=== PATIENT | male | born 1950 | race Caucasian/White ===

== ENCOUNTER 2019-11-10 17:17 | Inpatient (IN) | payer OTHER, BC ==
[2019-11-10 17:23] VITALS: BMI 23.9
--- NOTE | 2019-11-10 17:24 | PDOC ---
History of Present Illness - General Chief Complaint: CVA/TIA Stated Complaint: R/O STROKE Time Seen by Provider: 11/10/19 17:22 Past History - Past Medical History Allergies/Adverse Reactions: Allergies Allergy/AdvReac Type Severity Reaction Status Date / Time No Known Allergies Allergy Verified 11/10/19 17:19 Cardiac Disorders: Yes (heart mummer) COPD: No HTN: Yes - Psycho Social/Smoking Cessation Hx Smoking History: Current every day smoker Have you smoked in the past 12 months: Yes Number of Cigarettes Smoked Daily: 20 Information on smoking cessation initiated: No Hx Alcohol Use: Yes Drug/Substance Use Hx: No *Physical Exam - Vital Signs Last Vital Signs Temp Pulse Resp BP Pulse Ox 116 H 20 110/60 100 11/10/19 17:19 11/10/19 17:19 11/10/19 17:19 11/10/19 17:19
[2019-11-10 18:01] LABS: BASO % 0.6 % (0-2.0); EOS % 1.1 % (0-4.5); HEMATOCRIT 21.4 % (35.4-49); LYMPH % 16.9 % (8-40); MCH 30.7 pg (25.7-33.7); MCHC 32.8 g/dl (32.0-35.9); MEAN CELL VOLUME 93.6 fl (80-96); MEAN PLT VOLUME 7.3 fl (7.5-11.1); MONO % 7.8 % (3.8-10.2); NEUT % 73.6 % (42.8-82.8); PLATELET COUNT 296 K/MM3 (134-434); RBC 2.29 M/mm3 (4.00-5.60); RDW 14.7 % (11.9-15.9); WHITE BLOOD COUNT 5.3 K/mm3 (4.0-10.0)
--- NOTE | 2019-11-10 18:03 | PDOC ---
Documentation entered by Nhan Gray SCRIBE, acting as scribe for Merly Tracy MD. Merly Tracy MD: This documentation has been prepared by the Marina fulton Nirvannie, SCRIBE, under my direction and personally reviewed by me in its entirety. I confirm that the documentation accurately reflects all work, treatment, procedures, and medical decision making performed by me. History of Present Illness - General Chief Complaint: CVA/TIA Stated Complaint: R/O STROKE Time Seen by Provider: 11/10/19 17:22 History Source: Patient, EMS, Family Exam Limitations: No Limitations - History of Present Illness Initial Comments: 11/10/19 17:48 The patient is a 69 year old male, with a significant past medical history of hypertension, cardiac murmur, and recent RLE surgery (fx leg 10/31 and d/c 11/09 ), who presents to the emergency department via EMS from home with episodic dysphasia and word finding difficulty lasting 40 minutes, started at approximately 4:15pm. As per family and EMS at bedside, his [id number] found him hunched over and when attempting to ask him what is going on he was stating random words. As per patient, he was aware of everything which was occurring and to him he was speaking coherently. EMS notes patient fractured his RLE 10/31 and was supposed to be discharged 11/09 but it was rescheduled to yesterday secondary to a transient episode of dysphagia similar to today. Patient normally drinking 5-6 beers per day but has not for a prolonged period of time secondary to his admission, yesterday he consumed one beer. Patient notes an associated twitch in his right lower extremity. While in the ED, patient notes to feel better than he did earlier but, not quite himself. He denies any focal changes in strength/sensation, LOC, or recent head/neck trauma. He denies any recent fevers, chills, headache or dizziness. He denies any recent nausea, vomiting, diarrhea or constipation. He denies any recent chest pain or shortness of breath. He denies any recent dysuria, frequency, urgency or hematuria. Allergies: NKDA Past [facility] history: [facility] Social History: Drinks (5-6 beers/day, 1 beer yesterday) Past History - Past Medical History Allergies/Adverse Reactions: Allergies Allergy/AdvReac Type Severity Reaction Status Date / Time No Known Allergies Allergy Verified 11/10/19 17:19 Home Medications: Ambulatory Orders Amlodipine Besylate 10 mg PO DAILY 11/10/19 Lisinopril 20 mg PO DAILY 11/10/19 Metoprolol Tartrate 100 mg PO DAILY 11/10/19 Cardiac Disorders: Yes (heart mummer) COPD: No HTN: Yes - Psycho Social/Smoking Cessation Hx Smoking History: Current every day smoker Have you smoked in the past 12 months: Yes Number of Cigarettes Smoked Daily: 20 Information on smoking cessation initiated: No Hx Alcohol Use: Yes Drug/Substance Use Hx: No Review of Systems - Review of Systems Able to Perform ROS?: Yes Comments:: 11/10/19 17:49 GENERAL/CONSTITUTIONAL: No fever or chills. No weakness. HEAD, EYES, EARS, NOSE AND THROAT: No change in vision. No ear pain or discharge. No sore throat. CARDIOVASCULAR: No chest pain or shortness of breath. RESPIRATORY: No cough, wheezing, or hemoptysis. GASTROINTESTINAL: No nausea, vomiting, diarrhea or constipation. GENITOURINARY: No dysuria, frequency, or change in urination. MUSCULOSKELETAL: No joint or muscle swelling or pain. No neck or back pain. SKIN: No rash. NEUROLOGIC: +Transient dysarthria. No headache, vertigo, loss of consciousness, or change in strength/sensation. ENDOCRINE: No increased thirst. No abnormal weight change. HEMATOLOGIC/LYMPHATIC: No anemia, easy bleeding, or history of blood clots. ALLERGIC/IMMUNOLOGIC: No hives or skin allergy. All Other Systems: Reviewed and Negative *Physical Exam - Vital Signs Last Vital Signs Temp Pulse Resp BP Pulse Ox 116 H 20 110/60 100 11/10/19 17:19 11/10/19 17:19 11/10/19 17:19 11/10/19 17:19 - Physical Exam GENERAL: Awake, alert, and fully oriented, in no acute distress HEAD: No signs of trauma EYES: PERRLA, EOMI, sclera anicteric, conjunctiva clear ENT: Auricles normal inspection, hearing grossly normal, nares patent, oropharynx clear without exudates. Moist mucosa NECK: Normal ROM, supple, no lymphadenopathy, JVD, or masses LUNGS: Breath sounds equal, clear to auscultation bilaterally. No wheezes, and no crackles HEART: Regular rate and rhythm, normal S1 and S2, no murmurs, rubs or gallops ABDOMEN: Soft, nontender, normoactive bowel sounds. No guarding, no rebound. No masses EXTREMITIES: R lower leg with cast in place. No thigh tenderness. Remainder of extremities with normal range of motion, no edema. No clubbing or cyanosis. No cords, erythema, or tenderness NEUROLOGICAL: Cranial nerves II through XII grossly intact. Normal speech. Motor and sensation intact SKIN: Warm, dry, normal turgor, no rashes or lesions noted. NIH Stroke Scale - Initial Evaluation Level of consciousness: Alert Ask patient the month and their age: Answers both correctly Ask patient to open & close eyes; make fist and let go: Obeys both correctly Best gaze (horizontal eye movement): Normal Visual field testing: No visual field loss Facial paresis (Show teeth/raise eyebrows/close eyes tight): Normal symmetrical movement Motor Function: Left Arm: Normal Motor Function: Right Arm: Normal (extends arm 90 (or 45) degrees for 10 seconds without drift Motor Function: Left Leg: Normal (extends leg 30 degrees for 5 seconds without drift) Motor Function: Right Leg: Normal (extends leg 30 degrees for 5 seconds without drift) Limb Ataxia: No ataxia Sensory(Use pinprick test arms,legs,trunk,face/side to side): Normal Best language (Describe picture, name items, read sentences): No Aphasia Dysarthria (read several words): Normal articulation Extinction and Inattention: No abnormality - Total Score NIH Stroke Scale Score: 0 Critical Care Time/MDM Note - Medical Decision Making Note: 11/10/19 19:27 Pt presented with TIA, noted by the family to have expressive aphasia at home. He was recently discharged from [facility] after treatment for an open fracture. On the day of discharge he had a similar incident, although the workup that was obtained was unclear. Neuro symptoms lasted for 40 min today, resolved by the time he arrived in the ED. Found to have anemia. As per family his Hb was ~9.4 at time of discharge 2 days ago, now found to be 7. Stool occult positive. Will plan for transfusion. Admit for TIA and symptomatic anemia. 11/10/19 21:04 Called to bedside by family, as patient had another episode of expressive aphasia. It lasted less than 5 minutes, and was resolved by the time I arrived at the bedside. NIHSS is 0 at present. Discharge - Discharge Information Problems reviewed: Yes Clinical Impression/Diagnosis: Transient ischemic attack, Symptomatic anemia - Admission Yes - Follow up/Referral - Patient Discharge Instructions - Post Discharge Activity
[2019-11-10 18:10] LABS: INR 1.05 (0.83-1.09); PROTHROMBIN TIME (PATIENT) 12.4 SEC (9.7-13.0)
[2019-11-10 18:12] LABS: ACTIVATED PTT 34.6 SECONDS (25.2-36.5)
[2019-11-10] MEDS: SODIUM CHLORIDE 1,000 ML IV SCH (18:19)
[2019-11-10 18:28] LABS: ALBUMIN 2.3 g/dl (3.4-5.0); BILIRUBIN,TOTAL 0.2 mg/dL (0.2-1); BLOOD UREA NITROGEN 28.9 mg/dL (7-18); CALCIUM 8.2 mg/dL (8.5-10.1); CREATININE 0.8 mg/dL (0.55-1.3); POTASSIUM 3.9 mmol/L (3.5-5.1); TOT PROT 4.9 g/dl (6.4-8.2)
[2019-11-10 18:48] LABS: URINE APPEARANCE CLEAR; URINE BILIRUBIN NEGATIVE (NEGATIVE); URINE COLOR YELLOW; URINE GLUCOSE (UA) NEGATIVE (NEGATIVE); URINE KETONE NEGATIVE (NEGATIVE); URINE LEUK ESTERASE NEGATIVE (NEGATIVE); URINE NITRITE NEGATIVE (NEGATIVE); URINE PROTEIN NEGATIVE (NEGATIVE); URINE UROBILINOGEN 0.2 mg/dL (0.2-1.0)
[2019-11-10] MEDS ORDERED: PANTOPRAZOLE SODIUM 40 MG VIAL IVPUSH ONE (20:09)
--- NOTE | 2019-11-10 20:45 | HP ---
CHIEF COMPLAINT: AMS PCP: Nargis HISTORY OF PRESENT ILLNESS: Mr. Andrade is a 69y/o male with HTN, hx of Agrawal's Palsy, alcohol use disorder, tobacco use disorder, and RLE fx repair (10/31/19 and 11/06/19) who presents following multiple episodes of AMS. Pt was injured on October 31 and had surgery the and at [facility]. He was discharged on the . As he was being wheeled out, pt had an episode of fluent aphasia and his left arm became weak. After a few minutes he was coherent and he had a brief period of left facial droop that resolved. This was the same side as previous Agrawal's Palsy. A similar episode occurred this afternoon where the patient was not coherent. There was no loss of consciousness. EMS was called, and the episode resolved completely prior to arrival to [facility]. It is reported he has had more than 1 extremely brief episode in the ED since arrival. They have not been witnessed by staff. Son denies dysphagia or coughing while eating or drinking by patient. Pt reports he was on heparin at [facility], d/c'ed on ASA but pt did not take. He took 1 400mg ibuprofen last night but no other NSAIDs were taken. He reports having dark stool while at [facility] but did not tell anyone until now. He has no history of GI bleeds. His last colonoscopy was 10 years ago and no reported polyps or any findings. He was scheduled for one this month. ER course was notable for: (1) Hb 7, transfuse 2 units (2) CT head negative for acute processes (3) fecal occult positive PAST MEDICAL HISTORY: HTN, hx of Agrawal's Palsy, alcohol use disorder, tobacco use disorder, and RLE fx repair (10/31/19 and 11/06/19) PAST SURGICAL HISTORY: Social History: Smokinppd since age 13 Alcohol: 6 beers/day Drugs: denies Allergies No Known Allergies Allergy (Verified 11/10/19 17:19) HOME MEDICATIONS: Home Medications Medication Instructions Recorded Amlodipine Besylate 10 mg PO DAILY 11/10/19 Lisinopril 20 mg PO DAILY 11/10/19 Metoprolol Tartrate 100 mg PO DAILY 11/10/19 REVIEW OF SYSTEMS See HPI PHYSICAL EXAMINATION Vital Signs - 24 hr 11/10/19 11/10/19 17:19 17:56 Pulse Rate 116 H Respiratory 20 Rate Blood Pressure 110/60 O2 Sat by Pulse 100 98 Oximetry (%) GENERAL: Awake, alert, and fully oriented, in no acute distress. HEAD: Normal with no signs of trauma. EYES: Pupils equal, round and reactive to light, extraocular movements intact, sclera anicteric, conjunctiva clear. EARS, NOSE, THROAT: Ears normal, nares patent, Moist mucous membranes. NECK: Normal range of motion, no JVD LUNGS: Clear to auscultation bilaterally. No wheezes, and no crackles. HEART: Tachycardic, regular rhythm, no murmur ABDOMEN: Soft, nontender, not distended, normoactive bowel sounds MUSCULOSKELETAL: Normal range of motion at all joints. UPPER EXTREMITIES: Warm, well-perfused. No peripheral edema. LOWER EXTREMITIES: Warm, well-perfused. No left calf tenderness. No peripheral edema. Right leg below knee in cast with romy wrap, no cyanosis NEUROLOGICAL: Cranial nerves II-XII intact. Normal speech. PSYCHIATRIC: Cooperative. Good eye contact. Appropriate mood and affect. SKIN: Warm, dry, normal turgor Laboratory Results - last 24 hr 11/10/19 11/10/19 11/10/19 17:40 17:40 17:40 WBC 5.3 RBC 2.29 L Hgb 7.0 L Hct 21.4 L MCV 93.6 MCH 30.7 MCHC 32.8 RDW 14.7 Plt Count 296 MPV 7.3 L Absolute Neuts (auto) 3.9 Neutrophils % 73.6 Lymphocytes % 16.9 Monocytes % 7.8 Eosinophils % 1.1 Basophils % 0.6 Nucleated RBC % 0 PT with INR 12.40 INR 1.05 PTT (Actin FS) 34.6 Sodium 139 Potassium 3.9 Chloride 107 Carbon Dioxide 27 Anion Gap 6 L BUN 28.9 H Creatinine 0.8 Est GFR (CKD-EPI)AfAm 104.90 Est GFR (CKD-EPI)NonAf 90.51 Random Glucose 183 H Calcium 8.2 L Total Bilirubin 0.2 AST 21 ALT 22 Alkaline Phosphatase 56 Creatine Kinase 153 Creatine Kinase Index 0.8 CK-MB (CK-2) 1.3 Troponin I 0.02 Total Protein 4.9 L Albumin 2.3 L Triglycerides 86 Cholesterol 104 Total LDL Cholesterol 58 HDL Cholesterol 31 L Urine Color Urine Appearance Urine pH Ur Specific [place] Urine Protein Urine Glucose (UA) Urine Ketones Urine Blood Urine Nitrite Urine Bilirubin Urine Urobilinogen Ur Leukocyte Esterase Stool Occult Blood Crossmatch 11/10/19 11/10/19 11/10/19 18:30 18:36 19:05 WBC RBC Hgb Hct MCV MCH MCHC RDW Plt Count MPV Absolute Neuts (auto) Neutrophils % Lymphocytes % Monocytes % Eosinophils % Basophils % Nucleated RBC % PT with INR INR PTT (Actin FS) Sodium Potassium Chloride Carbon Dioxide Anion Gap BUN Creatinine Est GFR (CKD-EPI)AfAm Est GFR (CKD-EPI)NonAf Random Glucose Calcium Total Bilirubin AST ALT Alkaline Phosphatase Creatine Kinase Creatine Kinase Index CK-MB (CK-2) Troponin I Total Protein Albumin Triglycerides Cholesterol Total LDL Cholesterol HDL Cholesterol Urine Color Yellow Urine Appearance Clear Urine pH 5.0 Ur Specific [place] 1.019 Urine Protein Negative Urine Glucose (UA) Negative Urine Ketones Negative Urine Blood Negative Urine Nitrite Negative Urine Bilirubin Negative Urine Urobilinogen 0.2 Ur Leukocyte Esterase Negative Stool Occult Blood Positive Crossmatch See Detail ASSESSMENT/PLAN: Mr. Andrade is a 69y/o male with HTN, hx of Agrawal's Palsy, alcohol use disorder, tobacco use disorder, and RLE fx repair (10/31/19 and 11/06/19) who presents following multiple episodes of AMS. He also reports dark stool. #symptomatic anemia 2/2 GI bleed -Hb 7 at presentation -2 units PRBCs -protonix drip -GI consulted- agreed with protonix drip -ICU consulted- will monitor progress of patient and admit to ICU if pt becomes unstable -iron studies #AMS 2/2 CVA/TIA vs anemia -CT head negative for acute processes -speech/swallow consult -echo -carotid doppler -neuro consult -B12 level -folate level -consider statin -consider MRI after leg hardware is checked for MRI compatibility #ETOH use disorder -drinks 6 beers daily -CIWA 0 now -will monitor for withdrawal symptoms and manage #tobacco use disorder -nicotine patch #HTN -hold home meds in light of current pressure DVT Ppx SCD left leg FEN NS 100mL/hr monitor labs, Hb NPO until passes swallow study dispo tele Visit type - Emergency Visit Emergency Visit: Yes ED Registration Date: 11/10/19 Care time: The patient presented to the Emergency Department on the above date and was hospitalized for further evaluation of their emergent condition. - New Patient This patient is new to me today: Yes Date on this admission: 11/11/19 - Critical Care Critical Care patient: No ATTENDING PHYSICIAN STATEMENT I saw and evaluated the patient. I reviewed the resident's note and discussed the case with the resident. I agree with the resident's findings and plan as documented. SUBJECTIVE: OBJECTIVE: ASSESSMENT AND PLAN:
[2019-11-10] MEDS ORDERED: PANTOPRAZOLE SODIUM 40 MG VIAL ONE (22:36)
--- NOTE | 2019-11-11 00:07 | PN ---
Teaching Attending Note Name of Resident: Macy Otto ATTENDING PHYSICIAN STATEMENT I saw and evaluated the patient. I reviewed the resident's note and discussed the case with the resident. I agree with the resident's findings and plan as documented. SUBJECTIVE: 69 year old male, with a significant past medical history of hypertension, cardiac murmur, and recent RLE surgery (fx leg 10/31 and d/c 11/09), who presents Via EMS with episodic episodes of dysphagia and difficulty in word finding lasting about 40 minutes, started approximately 4:15 PM on 11/10/2019. As per his family member, patient was found hunched over and was using random words and unable to speak coherently. Patient was recently admitted to [facility] for fracture of right lower extremity on 10/31/2019 and underwent right lower leg surgery on the same day. OBJECTIVE: Last Vital Signs Temp Pulse Resp BP Pulse Ox 116 H 20 110/60 98 11/10/19 17:19 11/10/19 17:19 11/10/19 17:19 11/10/19 17:56 GENERAL: Well developed, well nourished. Awake and alert. No acute distress. HEENT: Normocephalic, atraumatic. PERRLA, EOMI. No conjunctival pallor. Sclera are non- icteric. Moist mucous membranes. Oropharynx is clear. NECK: Supple. Full ROM. No JVD. Carotid pulses 2+ and symmetric, without bruits. No thyromegaly. No lymphadenopathy. CARDIOVASCULAR: Regular rate and rhythm. No murmurs, rubs, or gallops. Distal pulses are 2+ and symmetric. PULMONARY: No evidence of respiratory distress. Lungs clear to auscultation bilaterally. No wheezing, rales or rhonchi. ABDOMINAL: Soft. Non-tender. Non-distended. No rebound or guarding. No organomegaly. Normoactive bowel sounds. MUSCULOSKELETAL Normal range of motion at all joints. No bony deformities or tenderness. No CVA tenderness. EXTREMITIES: No cyanosis. No clubbing. No edema. No calf tenderness. SKIN: Warm and dry. Normal capillary refill. No rashes. No jaundice. PSYCHIATRIC: Cooperative. Good eye contact. Appropriate mood and affect. Abnormal Lab Results 11/10/19 11/10/19 11/10/19 17:40 17:40 19:05 RBC 2.29 L Hgb 7.0 L Hct 21.4 L MPV 7.3 L Anion Gap 6 L BUN 28.9 H Random Glucose 183 H Calcium 8.2 L Total Protein 4.9 L Albumin 2.3 L HDL Cholesterol 31 L Crossmatch See Detail Imaging studies reviewed ASSESSMENT AND PLAN: 69-year-old male with TIA, aphasia intermittently, CVA should be ruled out. Initial CT of head was unremarkable. Admit to telemetry Transthoracic echo Carotid Doppler ultrasound High dose Lipitor Neurology evaluation Neurochecks every 4 hours N.p.o. #Suspect upper GI bleed, high BUN, positive fecal occult blood, likely secondary to aspirin versus other NSAID use especially after recent surgery. Severe anemia with hemoglobin of 7.0 initially, status post 2 units of PRBCs. 2 large-bore IVs in upper extremities IV fluid resuscitation Protonix drip Monitor vital signs closely GI consult Keep n.p.o. for EGD Avoid NSAIDs PT, PTT, type and screen If drop in blood pressure or worsening tachycardia will transfer to ICU Monitor CBC every 6 hours Hold antihypertensives at this time SCDs for DVT prophylaxis
[2019-11-11] MEDS ORDERED: PANTOPRAZOLE SODIUM 40 MG VIAL ONE ×2 (01:03→10:07)
[2019-11-11] MEDS: PANTOPRAZOLE SODIUM 80 MG in SODIUM CHLORIDE 100 ML IVPB SCH ×4 (01:29→16:30)
--- NOTE | 2019-11-11 07:49 | PN ---
Progress Note (short form) - Note Progress Note: GI CONSULT DICTATED NPO / IVF'S PPI INFUSION AVOID NSAID TRANSFUSE TO HG OF 9-10 NPO MIDNIGHT FOR EGD TUESDAY SEE FULL CONSULT DICTATED
[2019-11-11 08:22] LABS: HEMATOCRIT 22.1 % (35.4-49); HEMOGLOBIN 7.5 GM/dL (11.7-16.9); MCH 31.3 pg (25.7-33.7); MCHC 34.2 g/dl (32.0-35.9); MEAN CELL VOLUME 91.6 fl (80-96); MEAN PLT VOLUME 7.3 fl (7.5-11.1); PLATELET COUNT 291 K/MM3 (134-434); RBC 2.41 M/mm3 (4.00-5.60); RDW 13.9 % (11.9-15.9); WHITE BLOOD COUNT 6.7 K/mm3 (4.0-10.0)
--- NOTE | 2019-11-11 09:32 | PN ---
Progress Note (short form) - Note Progress Note: Subjective: No fever or chills. no CARDONA, no change in vision, no aphasia. no abd pain, denies any use of NSAIDs. has no h/o GI bleed. last colo 10 yrs ago. No EGD in past. noticed black stool while in [facility] x 2, then after dc Red blood ins tool. reported an episode of change in vision while being discharged from [facility]. on . Objective: Vital Signs: Last Vital Signs Temp Pulse Resp BP Pulse Ox 98.1 F 91 H 20 118/75 98 11/11/19 08:00 11/11/19 08:00 11/11/19 08:00 11/11/19 08:00 11/11/19 08:00 Laboratory Results - last 24 hr 11/10/19 11/10/19 11/10/19 17:40 17:40 17:40 WBC 5.3 RBC 2.29 L Hgb 7.0 L Hct 21.4 L MCV 93.6 MCH 30.7 MCHC 32.8 RDW 14.7 Plt Count 296 MPV 7.3 L Absolute Neuts (auto) 3.9 Neutrophils % 73.6 Lymphocytes % 16.9 Monocytes % 7.8 Eosinophils % 1.1 Basophils % 0.6 Nucleated RBC % 0 PT with INR 12.40 INR 1.05 PTT (Actin FS) 34.6 Sodium 139 Potassium 3.9 Chloride 107 Carbon Dioxide 27 Anion Gap 6 L BUN 28.9 H Creatinine 0.8 Est GFR (CKD-EPI)AfAm 104.90 Est GFR (CKD-EPI)NonAf 90.51 Random Glucose 183 H Calcium 8.2 L Total Bilirubin 0.2 AST 21 ALT 22 Alkaline Phosphatase 56 Creatine Kinase 153 Creatine Kinase Index 0.8 CK-MB (CK-2) 1.3 Troponin I 0.02 Total Protein 4.9 L Albumin 2.3 L Triglycerides 86 Cholesterol 104 Total LDL Cholesterol 58 HDL Cholesterol 31 L Urine Color Urine Appearance Urine pH Ur Specific [place] Urine Protein Urine Glucose (UA) Urine Ketones Urine Blood Urine Nitrite Urine Bilirubin Urine Urobilinogen Ur Leukocyte Esterase Stool Occult Blood Blood Type Antibody Screen Crossmatch 11/10/19 11/10/19 11/10/19 18:30 18:36 19:05 WBC RBC Hgb Hct MCV MCH MCHC RDW Plt Count MPV Absolute Neuts (auto) Neutrophils % Lymphocytes % Monocytes % Eosinophils % Basophils % Nucleated RBC % PT with INR INR PTT (Actin FS) Sodium Potassium Chloride Carbon Dioxide Anion Gap BUN Creatinine Est GFR (CKD-EPI)AfAm Est GFR (CKD-EPI)NonAf Random Glucose Calcium Total Bilirubin AST ALT Alkaline Phosphatase Creatine Kinase Creatine Kinase Index CK-MB (CK-2) Troponin I Total Protein Albumin Triglycerides Cholesterol Total LDL Cholesterol HDL Cholesterol Urine Color Yellow Urine Appearance Clear Urine pH 5.0 Ur Specific [place] 1.019 Urine Protein Negative Urine Glucose (UA) Negative Urine Ketones Negative Urine Blood Negative Urine Nitrite Negative Urine Bilirubin Negative Urine Urobilinogen 0.2 Ur Leukocyte Esterase Negative Stool Occult Blood Positive Blood Type O POSITIVE Antibody Screen Negative Crossmatch See Detail 11/10/19 11/11/19 20:32 08:00 WBC 6.7 RBC 2.41 L Hgb 7.5 L Hct 22.1 L MCV 91.6 MCH 31.3 MCHC 34.2 RDW 13.9 Plt Count 291 MPV 7.3 L Absolute Neuts (auto) Neutrophils % Lymphocytes % Monocytes % Eosinophils % Basophils % Nucleated RBC % PT with INR INR PTT (Actin FS) Sodium Potassium Chloride Carbon Dioxide Anion Gap BUN Creatinine Est GFR (CKD-EPI)AfAm Est GFR (CKD-EPI)NonAf Random Glucose Calcium Total Bilirubin AST ALT Alkaline Phosphatase Creatine Kinase Creatine Kinase Index CK-MB (CK-2) Troponin I Total Protein Albumin Triglycerides Cholesterol Total LDL Cholesterol HDL Cholesterol Urine Color Urine Appearance Urine pH Ur Specific [place] Urine Protein Urine Glucose (UA) Urine Ketones Urine Blood Urine Nitrite Urine Bilirubin Urine Urobilinogen Ur Leukocyte Esterase Stool Occult Blood Blood Type O POSITIVE Antibody Screen Crossmatch Physical Exam: NAD , awake , alert oriented and cooperative MMM. No JVD CV: RRR, 2/6 SM at apex . Bruit heard over R carotid artery Lungs: CTAB Abd: soft, NT, ND , NL BS Ext: No edema , no erythema on LLE. Dp 2+ . R leg and foot in a cast. can move toes and has normal sensation in them ( 5th toe is not visible through the cast) . R thigh circumference > L , with no erythema Neuro: Nl speech , EOMI, round equal pupils, reactive to light. mild L lateral nystagmus . tongue and uvula at mid line. Nl facial sensation . no facial droop. Strength : RUE, LUE: 5/5 shoudler shrug, shoulder abduction, biceps, triceps . 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 RLE: 5/5 Hip flexion . rest not done due to cast. reflexes: 2+ knee jerk b/l. 2+ biceps and BR b/l Sensatio to light touch Nl in face and body. Nl nose to finger and alternating hand movements in both sides Imaging: CT of head, RLE US, and cxray reports reviewed. Assessment/Plan: 69 y/o gentleman with h/o HTN, heart murmur, and recent RLE Fx s/p surgical intervention ( [facility] 10/31/19-11/09/19) . He presented with an episode of aphasia and was found to be anemic. 1- Normocytic anemia: given reported h/o melena, + OB in stool this is suspicious for upper GI bleed. of course , recent surgical procedure , might be contributing ( blood loss). He denies ASA or NSAIDS. No h/o PUD, No h/o EGD. last colo 10 yr ago. No h/o anemia, and base line HB is not available - Cont PPI gtt - although Hb is 7.5, he just had sx of TIA. thus will transfuse one more unit - NPO pending GI eval - IVF - repeat CBC after transfusion - currently hemodynamically stable - holdl HTN meds - GI note pending Recs - iron studies were not done before tx. 2- Transient aphasia: possible TIA. neuro exam as above. had episode of change in vision on 11/09. has bruit over R carotid artery. - obtain MRI of the brain w/o lenin - CUS pending - Echo pending - tele reviewed, no events - start lipitor. lipid panel noted - was not given asa due to suspicion for GIB . will wait for GI and neuro Input 3- H/o HTN: hold HTN meds due to GI bleed . monitor - meds were confirmed with him. pharmacy closed now, need to confirm metoprolol ( Tartrate Vs succinate ) 4- Recent RLE Fx: scheduled for f/u on 11/16 at [facility] . Visit type - Emergency Visit Emergency Visit: Yes ED Registration Date: 11/10/19 Care time: The patient presented to the Emergency Department on the above date and was hospitalized for further evaluation of their emergent condition. - New Patient This patient is new to me today: Yes Date on this admission: 11/11/19 - Critical Care Critical Care patient: No
[2019-11-11 10:12] LABS: ALBUMIN 2.2 g/dl (3.4-5.0); BILIRUBIN,TOTAL 0.9 mg/dL (0.2-1); BLOOD UREA NITROGEN 33.1 mg/dL (7-18); CALCIUM 8.3 mg/dL (8.5-10.1); CREATININE 0.8 mg/dL (0.55-1.3); MAGNESIUM 2.1 mg/dL (1.8-2.4); POTASSIUM 3.7 mmol/L (3.5-5.1); TOT PROT 4.9 g/dl (6.4-8.2)
[2019-11-11] MEDS: NICOTINE 14 MG/24 HOURS TOPICAL PATCH TD SCH (10:24)
--- NOTE | 2019-11-11 13:11 | EKG ---
Test Reason : Blood Pressure : / mmHG Vent. Rate : 095 BPM Atrial Rate : 095 BPM P-R Int : 200 ms QRS Dur : 092 ms QT Int : 330 ms P-R-T Axes : 000 048 049 degrees QTc Int : 414 ms NORMAL SINUS RHYTHM SEPTAL INFARCT , AGE UNDETERMINED ABNORMAL ECG NO PREVIOUS ECGS AVAILABLE Confirmed by LUCILA FAITH MD ([id number]) on 11/11/2019 1:11:05 PM Referred By: Confirmed By:LUCILA FAITH MD
[2019-11-11] MEDS: SODIUM CHLORIDE 1,000 ML IV SCH (17:40)
--- NOTE | 2019-11-11 18:56 | CONS ---
DATE OF CONSULTATION: DATE OF DICTATION: 11/11/2019 The patient is a 69-year-old man with a past medical history of Agrawal's palsy, alcohol abuse in the past, status post a right lower extremity fracture repair earlier this month, who was on anticoagulation for the surgery, which was done at [facility]. He was discharged on the 9th of this month and had some facial droop prior to coming to the hospital and decrease in coherency and change in his mental status. Apparently he was staying with his son, who decided to bring him to the hospital for further evaluation. The history is limited, but according to the , there were some complaints of dark stool while at [facility]. There is no previous history of GI bleed in the past. He did take NSAID. Last colonoscopy was 10 years ago, he reports to be negative and does not remember the doctor's name, however, that it was done in the [place]. He currently denies abdominal pain, nausea, vomiting, hematemesis, or hematochezia. He does report black stool. He has never had an upper endoscopy in the past. PAST MEDICAL AND SURGICAL HISTORY: As listed in the HPI. SOCIAL HISTORY: Smokes 1 pack per day. Alcohol: Six beers daily. Denies any drug abuse. ALLERGIES: No known drug allergies. Home medications include amlodipine, lisinopril, and metoprolol. REVIEW OF SYSTEMS: As per the HPI. PHYSICAL EXAMINATION: Vital Signs: Temperature 98, pulse 83, blood pressure 102/69, respiratory rate 12, oxygen saturation 98% on room air. General: No acute distress. HEENT: Anicteric sclerae. Cardiovascular: S1, S2, regular rate and rhythm. Lungs: Bilaterally clear to auscultation. Abdomen: Soft and nontender. Extremities: Without edema. LABORATORY DATA: White blood cell count 6.7, hemoglobin 7.5, hematocrit 22, MCV 91, platelet count 291, INR 1. Sodium 143, potassium 3.5, BUN 33, creatinine 0.8, glucose 110, iron 185, ferritin 447, AST 33, ALT 22, alkaline phosphatase 55. Troponin is negative x1. Urine is negative. Stool for occult blood is positive. No cultures were done on this hospitalization. He had a chest x-ray, which was negative. He also had a head CT, which was negative, and a vascular study, which was negative for DVT. IMPRESSION: Anemia, melena, in the setting of previous anticoagulation for orthopedic surgery within the past week, as well as NSAID use, suspicious for peptic ulcer disease or NSAID gastropathy or angiectasias. He does drink alcohol; however, he does not appear to have biochemical findings consistent with cirrhosis at this time. I doubt complications from cirrhosis as the etiology of this patient's current melena or GI bleed. He is hemodynamically at this time without sign of an over t GI bleed. RECOMMENDATION: Transfuse to a hemoglobin of 9 to 10, Protonix infusion, serial hemoglobin and hematocrit q.8 hours, avoid NSAID. Further etiology of his altered mental status as per the primary medical team as well as alcohol abstinence counseling. N.p.o., IV fluids. Plan for a diagnostic upper endoscopy Tuesday morning. If he were to become unstable, this can be done at a sooner time. Will follow. DO MAURICE [id number]
--- NOTE | 2019-11-11 19:57 | CON.NEURO ---
Consult Consult Specialty:: Eron Referred by:: ER Reason for Consultation:: AMS - History of Present Illness History of Present Illness: his 69-year-old right-handed man with multiple medical problem history of alcohol abuse history of smoking history of a recent to admission to [facility] for right leg procedure who presents today to the hospital with a chief complaint of altered mental status patient himselfis a poor historian most of the history was obtained from the chart patient was noted to be incoherent no seizure-like activity no recent travel no fall. Apparently the patient had a similar episode a [facility] patient was discharged on aspirin when the patient came in today was found to be anemic with H&H of 7. i reviewed the CAT scan of the head - History Source History Provided By: Significant Other, Medical Record Limitations to Obtaining History: Clinical Condition - Alcohol/Substance Use Hx Alcohol Use: Yes - Smoking History Smoking history: Current every day smoker Have you smoked in the past 12 months: Yes Aproximately how many cigarettes per day: 20 Home Medications - Allergies Allergies/Adverse Reactions: Allergies Allergy/AdvReac Type Severity Reaction Status Date / Time No Known Allergies Allergy Verified 11/10/19 17:19 - Home Medications Home Medications: Ambulatory Orders Amlodipine Besylate 10 mg PO DAILY 11/10/19 Lisinopril 20 mg PO DAILY 11/10/19 Metoprolol Tartrate 100 mg PO DAILY 11/10/19 Family Medical History Family History: Unremarkable Review of Systems - Review of Systems Neurological: reports: Headache, Incoordination, Numbness, Parasthesia Physical Exam-Neuro Vital Signs: Vital Signs Temperature 98.2 F 11/11/19 11:44 Pulse Rate 100 H 11/11/19 17:21 Respiratory Rate 12 11/11/19 17:21 Blood Pressure 107/56 L 11/11/19 17:21 O2 Sat by Pulse Oximetry (%) 97 11/11/19 17:21 Constitutional: Yes: Well Nourished Neck: Yes: WNL Cardiovascular: Yes: WNL Respiratory: Yes: WNL Labs: CBC, BMP 11/11/19 08:00 11/11/19 08:00 INR, PTT INR 1.05 (0.83-1.09) 11/10/19 17:40 - Neuro Exam Level Of Consciousness: Yes: Oriented to Person, Oriented to Place, Oriented to Time Eyes: Yes: PERRLA Speech: WNL Dominant Hand: Right Cranial Nerves II-XII Intact: Yes Gag: Present DTR's: 1+ Left Bicep, 1+ Right Bicep, 1+ Left Brachioradialis, 1+ Right Brachioradialis, 1+ Left Achilles, 1+ Right Achilles Response to light touch: Abnormal Response to pain prick: Abnormal Response to temperature: Normal Response to vibration: Normal Motor Strength: 3/5: Left Arm, Right Arm, Left Leg, Right Leg Gait: Deferred Imaging - Results Cat Scan: Image Reviewed Problem List - Problems (1) Transient ischemic attack Code(s): G45.9 - TRANSIENT CEREBRAL ISCHEMIC ATTACK, UNSPECIFIED Assessment/Plan uestionable TIA in the presence of anemia and recent discharge after major procedure in a 69-year-old smoker cannot rule out PE also 11. Neuro checks every 1 hour. . 2. Follow-up with gastroenterology. 3. MRI of the brain no contrast. 4. Hold off the aspirin until we discovered the source of the anemia. 5. Urine toxicology screen. 6. Speech and swallow evaluation. 8. SCD. 9. Am lipid. 10. Physical therapy. 11. hold off any antiplatelet agents thank you very much for referring this patient for neurological consultation we 'll follow the patient regarding the admission Shayne Littlejohn M.D.
[2019-11-11 20:14] LABS: HEMATOCRIT 24.1 % (35.4-49); HEMOGLOBIN 8.1 GM/dL (11.7-16.9); MCH 31.4 pg (25.7-33.7); MCHC 33.8 g/dl (32.0-35.9); MEAN PLT VOLUME 8.6 fl (7.5-11.1); PLATELET COUNT 286 K/MM3 (134-434); RBC 2.59 M/mm3 (4.00-5.60); RDW 14.8 % (11.9-15.9); WHITE BLOOD COUNT 8.5 K/mm3 (4.0-10.0)
[2019-11-11] MEDS ORDERED: ATORVASTATIN CA 40 MG TABLET (FP) ONE (22:14)
[2019-11-11] MEDS: ATORVASTATIN CA 40 MG TABLET (FP) PO SCH (22:25)
[2019-11-11 22:28] LABS: HEMATOCRIT 23.6 % (35.4-49); HEMOGLOBIN 7.7 GM/dL (11.7-16.9); MCH 30.6 pg (25.7-33.7); MCHC 32.8 g/dl (32.0-35.9); MEAN CELL VOLUME 93.4 fl (80-96); MEAN PLT VOLUME 7.8 fl (7.5-11.1); PLATELET COUNT 287 K/MM3 (134-434); RBC 2.53 M/mm3 (4.00-5.60); RDW 14.8 % (11.9-15.9); WHITE BLOOD COUNT 7.7 K/mm3 (4.0-10.0)
[2019-11-12] MEDS: PANTOPRAZOLE SODIUM 80 MG in SODIUM CHLORIDE 100 ML IVPB SCH ×2 (03:10→13:03)
[2019-11-12] MEDS ORDERED: diazePAM 5 MG TABLET PO ONE (09:45)
[2019-11-12] MEDS ORDERED: diazePAM 5 MG TABLET ONE (10:02)
[2019-11-12] MEDS ORDERED: SODIUM CHLORIDE 0.9% 500 ML INFUS.BAG IV ONE (10:26)
[2019-11-12 14:04] LABS: BASO % 0.4 % (0-2.0); EOS % 2.1 % (0-4.5); HEMATOCRIT 23.1 % (35.4-49); HEMOGLOBIN 7.9 GM/dL (11.7-16.9); LYMPH % 16.3 % (8-40); MCH 31.1 pg (25.7-33.7); MCHC 34.2 g/dl (32.0-35.9); MEAN CELL VOLUME 91.1 fl (80-96); MEAN PLT VOLUME 7.7 fl (7.5-11.1); MONO % 8.2 % (3.8-10.2); PLATELET COUNT 251 K/MM3 (134-434); RBC 2.54 M/mm3 (4.00-5.60); RDW 14.1 % (11.9-15.9); WHITE BLOOD COUNT 7.1 K/mm3 (4.0-10.0)
[2019-11-12 14:32] LABS: BLOOD UREA NITROGEN 27.4 mg/dL (7-18); CALCIUM 7.8 mg/dL (8.5-10.1); CREATININE 0.7 mg/dL (0.55-1.3); POTASSIUM 3.9 mmol/L (3.5-5.1)
[2019-11-12] MEDS: NICOTINE 14 MG/24 HOURS TOPICAL PATCH TD SCH (14:49)
--- NOTE | 2019-11-12 15:43 | ECHO ---
Name: BRANDON RYDER Exam:Adult Echocardiogram Study Date: 11/12/2019 03:03 PM Age: 69 yrs Height: 70 in Weight: 167 lb BSA: 1.9 m2 MMode/2D Measurements & Calculations IVSd: 1.3 cm Ao root diam: 3.4 cm LVIDd: 4.0 cm LA dimension: 3.3 cm LVIDs: 2.6 cm ACS: 2.3 cm LVPWd: 1.3 cm EDV(Teich): 70.4 ml LVOT diam: 2.0 cm ESV(Teich): 25.2 ml RV S Refugio: 21.3 cm/sec Doppler Measurements & Calculations MV E max refugio: 110.2 cm/sec Ao V2 max: 139.6 cm/sec MV A max refugio: 83.4 cm/sec Ao max P.8 mmHg MV E/A: 1.3 Ao V2 mean: 84.1 cm/sec MV dec time: 0.15 sec Ao mean P.6 mmHg Ao V2 VTI: 25.5 cm JUAN(I,D): 2.3 cm2 JUAN(V,D): 2.5 cm2 LV V1 max P.8 mmHg MR max refugio: 512.1 cm/sec LV V1 mean P.4 mmHg MR max P.0 mmHg LV V1 max: 109.8 cm/sec LV V1 mean: 72.0 cm/sec LV V1 VTI: 18.5 cm SV(LVOT): 57.8 ml TR max refugio: 205.2 cm/sec TR max P.4 mmHg PA V2 max: 53.3 cm/sec Med Peak E' Refugio: 10.6 cm/sec PA max P.1 mmHg Med E/e': 10.4 Lat Peak E' Refugio: 10.9 cm/sec Lat E/e': 10.1 Procedure A complete two-dimensional transthoracic echocardiogram was performed (2D, M-mode, Doppler and color flow Doppler). Left Ventricle The left ventricle is normal in size. There is mild concentric left ventricular hypertrophy. Left james tricular systolic function is normal. Ejection Fraction = 60-65%. No regional wall motion abnormalities noted. Right Ventricle The right ventricle is normal size. The right ventricular systolic function is normal. Atria The left atrial size is normal. Right atrial size is normal. Mitral Valve Mildly redundant mitral valve leaflet. There is mild mitral regurgitation. Tricuspid Valve The tricuspid valve is normal in structure and function. There is mild tricuspid regurgitation. Pulmo nary artery systolic pressure is at least 27 mmHg if RA pressure is assumed 3 mmHg. Aortic Valve There is mild aortic sclerosis.;. No aortic regurgitation is present. Pulmonic Valve The pulmonic valve is not well visualized. Great Vessels The aortic root is normal size. Pericardium/Pleura There is no pericardial effusion. Interpretation Summary The left ventricle is normal in size. There is mild concentric left ventricular hypertrophy. Left ventricular systolic function is normal. No regional wall motion abnormalities noted. Ejection Fraction = 60-65%. The right ventricular systolic function is normal. The left atrial size is normal. Right atrial size is normal. Mildly redundant mitral valve leaflet There is mild mitral regurgitation. There is mild tricuspid regurgitation. Pulmonary artery systolic pressure is at least 27 mmHg if RA pressure is assumed 3 mmHg There is mild aortic sclerosis. There is no pericardial effusion. Dhaval Lopez MD 11/12/2019 03:42 PM
[2019-11-12] MEDS ORDERED: KETAMINE HCL 500 MG/10 ML VIAL ONE (15:50)
[2019-11-12] MEDS ORDERED: PANTOPRAZOLE SODIUM 80 MG in SODIUM CHLORIDE 100 ML IVPB SCH (17:00)
--- NOTE | 2019-11-12 17:59 | PN ---
Teaching Attending Note Name of Resident: Jorge Romo ATTENDING PHYSICIAN STATEMENT I saw and evaluated the patient. I reviewed the resident's note and discussed the case with the resident. I agree with the resident's findings and plan as documented. SUBJECTIVE: patient was seen in PACu after EGD. No fever or chills. no CP n, no SOB , no CARDONA , no change in vision . no Abd pain . OBJECTIVE: NAD, awake, alert oriented and cooperative . MMM CV: RRR, 2/6 SM at apex . Bruit heard over R carotid artery Lungs: CTAB Abd: soft, NT, ND , NL BS Ext: No edema , no erythema on LLE. Dp 2+ . R leg and foot in a cast. can move toes and has normal sensation in them Neuro: Nl speech , EOMI, round equal pupils, reactive to light. slight effacement of the L nasolabial fold. tongue and uvula at mid line. Nl facial sensation . Strength : RUE, LUE: 5/5 shoudler shrug, shoulder abduction, biceps, triceps . 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 RLE: 5/5 Hip flexion. Rest not done due to cast. reflexes: 1+ knee jerk b/l. 2+ biceps and BR b/l Sensation to light touch Nl in face and body. Assessment/Plan: 69 y/o gentleman with h/o HTN, heart murmur, and recent RLE Fx s/p surgical intervention ( Giuseppe 10/31/19-11/09/19) . He presented with an episode of aphasia and was found to be anemic. 1- Acute blood loss anemia . due to gastric and duodenal ulcers. EGD report reviewed. - follow bx report - cont po protonix. - start diet if he passes bedside swallow eval - not clear on number of units patient received. finished a unit , now. will repeat Hb 2- Acute left cortical stroke: no aphasia any more and neuro exam is significant for mild L nasolabial effacement ( from prior Agrawal's palsy) - US of carotids showed up to 79 % stenosis, but this is not on the side where the acute stroke happened. MRi also shows R small white matter chronic infarcts. - can't use aspirin at this time due to acute bleed - transfuse to keep Hb > 9 - cont lipitor - cont tele - vascular consult. - neuro f/u - cont IVF . gave a bolus in am to maintain good perfusion pressure 3- H/o HTN: hold HTN meds due to GI bleed. 4- Recent RLE Fx: scheduled for f/u on 11/16 at [facility] .
[2019-11-12] MEDS ORDERED: ONDANSETRON 4 MG/2 ML VIAL IVPUSH PRN (18:15)
--- NOTE | 2019-11-12 18:32 | PN ---
Physical Exam: SUBJECTIVE: Patient seen and examined GERRY Endorses mild epigastric abd pain. Has been having dark stools since his RLE ORIF. Has fatigue. Denies h/o GIB. No SOB, CP OBJECTIVE: Vital Signs Period Temp Pulse Resp BP Sys/[place] Pulse Ox Last 24 Hr 98.0 F-99.4 F 74-96 14-20 98-133/44-72 97-100 GENERAL: The patient is awake, alert, and fully oriented, in no acute distress. Looks fatigued HEAD: NC/AT. EYES: extraocular movements intact, sclera anicteric, mild conjunctival pallor, conjunctiva clear. No ptosis. ENT: Ears normal, nares patent, moist mucous membranes. NECK: Trachea midline, full range of motion, supple. No cervical LAD LUNGS: Breath sounds equal, clear to auscultation bilaterally, no wheezes, no crackles, no accessory muscle use. HEART: Regular rate and rhythm, S1, S2 without murmur, rub or gallop. ABDOMEN: Soft, nontender, nondistended, normoactive bowel sounds, no guarding, no rebound. RECTAL: dark melanotic stool with red streak on ELYSE EXTREMITIES: 2+ pulses, warm, well-perfused, no edema. NEUROLOGICAL: Cranial nerves II through XII grossly intact. PSYCH: Normal mood, normal affect. SKIN: Pale skin. Warm, dry, normal turgor, no rashes or lesions noted Laboratory Results - last 24 hr 11/10/19 11/11/19 11/11/19 19:05 18:28 21:26 WBC 8.5 7.7 RBC 2.59 L 2.53 L Hgb 8.1 L 7.7 L Hct 24.1 L 23.6 L MCV 93.0 93.4 MCH 31.4 30.6 MCHC 33.8 32.8 RDW 14.8 14.8 Plt Count 286 287 MPV 8.6 D 7.8 Absolute Neuts (auto) Neutrophils % Lymphocytes % Monocytes % Eosinophils % Basophils % Nucleated RBC % Sodium Potassium Chloride Carbon Dioxide Anion Gap BUN Creatinine Est GFR (CKD-EPI)AfAm Est GFR (CKD-EPI)NonAf Random Glucose Calcium Blood Type O POSITIVE Antibody Screen Negative Crossmatch See Detail 11/12/19 11/12/19 13:40 13:40 WBC 7.1 RBC 2.54 L Hgb 7.9 L Hct 23.1 L MCV 91.1 MCH 31.1 MCHC 34.2 RDW 14.1 Plt Count 251 MPV 7.7 Absolute Neuts (auto) 5.2 Neutrophils % 73.0 Lymphocytes % 16.3 Monocytes % 8.2 Eosinophils % 2.1 D Basophils % 0.4 Nucleated RBC % 0 Sodium 147 H Potassium 3.9 Chloride 116 H Carbon Dioxide 26 Anion Gap 5 L BUN 27.4 H Creatinine 0.7 Est GFR (CKD-EPI)AfAm 110.82 Est GFR (CKD-EPI)NonAf 95.61 Random Glucose 110 H Calcium 7.8 L Blood Type Antibody Screen Crossmatch Active Medications Generic Name Dose Route Start Last Admin Trade Name Freq PRN Reason Stop Dose Admin Atorvastatin Calcium 40 mg 11/11/19 22:00 11/11/19 22:25 Lipitor - PO 40 mg HS CARLA Administration Sodium Chloride 1,000 mls @ 42 mls/hr 11/10/19 17:30 11/11/19 17:40 Normal Saline - IV 42 mls/hr ASDIR CARLA Administration Pantoprazole Sodium 80 mg/ 100 mls @ 10 mls/hr 11/12/19 17:00 Sodium Chloride IVPB Q10H CARLA 8 MG/HR Nicotine 14 mg 11/11/19 10:00 11/12/19 14:49 Nicoderm Patch - TD 14 mg DAILY CARLA Administration Pantoprazole Sodium 40 mg 11/13/19 10:00 Protonix - PO DAILY CARLA ASSESSMENT/PLAN: 69y/o male with HTN, hx of Left-sided Agrawal's Palsy(40ys prior), alcohol use disorder, tobacco use disorder, and distal RLE fx repair (10/31/19 and 11/06/19) presented following multiple episodes of AMS(fluent aphasia, LUE weakness) and weakness. He also reports dark stool during his admission for RLE fx repair. CTH neg for acute path. FOBT (+). Hgb ~7 on admission. Carotid doppler(11/12/19) with R ICA 60-79% stenosis. Started on atorvastatin 40mg. S/P pRBC x5 with little improvement in Hgb. EGD done emergently to evaluate for uGIB. #symptomatic anemia 2/2 GI bleed > FOBT + > Hgb 7.0, 7.5, 8.1, 7.7, 7.9 > iron studies: Iron Sat 81%, ferritin 447.6 --pt received pRBC -s/p PRBCs x5 -s/p protonix drip -GI(Jac) consulted --s/p EGD(11/12/19) with gastric and duodenal ulcers --protonix drip then protonix 40mg PO QD -ICU consulted --not accepted d/t HD stability #AMS 2/2 CVA/TIA vs anemia > B12 level: 537 --norm > folate level: 16 --norm > Lipid panel: LDL 58, HDL 31, TG 86 > CT head(11/10/19): negative for acute processes > MRI brain(11/12/19): 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; small vessel microangiopathic ischemia of the subcortical white matter > Echo(11/12/19): LVEF 60-65%, PASP >27mmHg > carotid doppler(11/12/19): R ICA 60-79% stenosis > CTA chest(11/12/19): neg PE, mild-mod COPD -Atorvastatin 40mg QD -speech/swallow consult -neuro(Eron) consult: --hold ASA and antiplatelet drugs for bleeding(source unknown), use SCDs --S&S --AM lipid #ETOH use disorder -drinks 6 beers daily -CIWA 0 now -will monitor for withdrawal symptoms and manage #tobacco use disorder -nicotine patch #HTN -hold home meds in light of current pressure DVT Ppx SCD left leg FEN NS 100mL/hr pantoprazole gtt NPO dispo tele Visit type - Emergency Visit Emergency Visit: No - New Patient This patient is new to me today: Yes Date on this admission: 11/12/19 - Critical Care Critical Care patient: No ATTENDING PHYSICIAN STATEMENT I saw and evaluated the patient. I reviewed the resident's note and discussed the case with the resident. I agree with the resident's findings and plan as documented. SUBJECTIVE: OBJECTIVE: ASSESSMENT AND PLAN:
--- NOTE | 2019-11-12 19:29 | PN ---
Progress Note, Physician History of Present Illness: events noted Chart reviewed After EGD No antiplatelet Noted ben images of ben MRI Duodenal Ulcer On PPI - Current Medication List Current Medications: Active Medications Atorvastatin Calcium (Lipitor -) 40 mg PO HS [facility] Last Admin: 11/11/19 22:25 Dose: 40 mg Fentanyl (Sublimaze Injection -) 25 mcg IVPUSH [id number] PRN PRN Reason: PAIN-PACU ORDER X 4 DOSES ONLY Sodium Chloride (Normal Saline -) 1,000 mls @ 100 mls/hr IV ASDIR [facility] Nicotine (Nicoderm Patch -) 14 mg TD DAILY [facility] Last Admin: 11/12/19 14:49 Dose: 14 mg Ondansetron HCl (Zofran Injection) 4 mg IVPUSH Q6H PRN PRN Reason: NAUSEA AND/OR VOMITING Pantoprazole Sodium (Protonix -) 40 mg PO DAILY [facility] - Objective Vital Signs: Vital Signs Temperature 98.1 F 11/12/19 18:00 Pulse Rate 78 11/12/19 18:00 Respiratory Rate 18 11/12/19 18:00 Blood Pressure 118/61 11/12/19 18:00 O2 Sat by Pulse Oximetry (%) 100 11/12/19 18:00 Constitutional: Yes: Well Nourished Eyes: Yes: WNL HENT: Yes: WNL Neurological: Yes: Alert, Oriented, Babinski negative ...Motor Strength: WNL Labs: CBC, BMP 11/12/19 13:40 11/12/19 13:40 INR, PTT INR 1.05 (0.83-1.09) 11/10/19 17:40 Problem List - Problems (1) Transient ischemic attack Assessment/Plan: watershed Infarct Anemia and hypoperfusion area No ASA HH daily Protonix DVT SCD Code(s): G45.9 - TRANSIENT CEREBRAL ISCHEMIC ATTACK, UNSPECIFIED
[2019-11-12 22:05] LABS: HEMATOCRIT 28.8 % (35.4-49); HEMOGLOBIN 10.1 GM/dL (11.7-16.9); MCH 31.9 pg (25.7-33.7); MEAN CELL VOLUME 90.9 fl (80-96); MEAN PLT VOLUME 7.7 fl (7.5-11.1); PLATELET COUNT 289 K/MM3 (134-434); RBC 3.16 M/mm3 (4.00-5.60); RDW 14.4 % (11.9-15.9); WHITE BLOOD COUNT 10.3 K/mm3 (4.0-10.0)
[2019-11-12] MEDS: ATORVASTATIN CA 40 MG TABLET (FP) PO SCH (22:25)
[2019-11-12 22:29] LABS: BLOOD UREA NITROGEN 29.1 mg/dL (7-18); CALCIUM 8.4 mg/dL (8.5-10.1); MAGNESIUM 1.8 mg/dL (1.8-2.4); PHOSPHOROUS 2.6 mg/dL (2.5-4.9); POTASSIUM 3.6 mmol/L (3.5-5.1)
[2019-11-12] MEDS: SODIUM CHLORIDE 1,000 ML IV SCH (22:38)
[2019-11-13 07:29] LABS: HEMATOCRIT 25.4 % (35.4-49); HEMOGLOBIN 9.1 GM/dL (11.7-16.9); MCHC 35.8 g/dl (32.0-35.9); MEAN CELL VOLUME 89.2 fl (80-96); MEAN PLT VOLUME 7.9 fl (7.5-11.1); PLATELET COUNT 271 K/MM3 (134-434); RBC 2.84 M/mm3 (4.00-5.60); RDW 14.5 % (11.9-15.9)
[2019-11-13 07:51] LABS: BLOOD UREA NITROGEN 22.5 mg/dL (7-18); CALCIUM 7.8 mg/dL (8.5-10.1); CREATININE 0.8 mg/dL (0.55-1.3); MAGNESIUM 1.9 mg/dL (1.8-2.4); PHOSPHOROUS 3.5 mg/dL (2.5-4.9); POTASSIUM 3.5 mmol/L (3.5-5.1)
[2019-11-13] MEDS: NICOTINE 14 MG/24 HOURS TOPICAL PATCH TD SCH (09:19)
[2019-11-13] MEDS: PANTOPRAZOLE 40 MG TABLET PO SCH (09:19)
[2019-11-13] MEDS ORDERED: PANTOPRAZOLE 40 MG TABLET PO SCH (10:00)
--- NOTE | 2019-11-13 10:08 | CONSULT ---
Admitting History and Physical - Primary Care Physician PCP: Vicenta Hansen - Admission History of Present Illness: 69y/o male with HTN, hx of Left Agrawal's Palsy, alcohol use disorder, tobacco use disorder, and RLE fx repair (10/31/19 and 11/06/19) who presents following multiple episodes of AMS and dark stool. Pt reported onset of speech difficulty, "blurry" thought he was speaking but family could not underastrand hinm. Spontaneously recovered before he left the home to go to the ED. Denied Dysphagia. NPO yesterday for EGD today. Multiple stomach ulcers/polyp. Pending report. Passed Dysphagia screen. 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 History - Admission Reason For Visit: TRANSIENT ISCHEMIC ATTACK, SECONDARY ANEMIA - Diagnostics X-ray: Report Reviewed CT Scan: Report Reviewed MRI: Report Reviewed - General Mental Status: Alert and Oriented, Awake and Alert, Able to Follow Commands Attention: Intact Ability to Follow Directions: Excellent Head/Neck Control: WFL - Hearing Hearing: Normal Speech Evaluation - Communication Primary Language: GUYANESE Secondary Language: GEORGIAN (fluent) Communication: Yes: Within Normal Limits Oral Expression Ability: Yes: No Impairment - Speech Production Able to Make Needs Known: Yes: WNL Intelligibility: Yes: WNL - Speech Characteristics Voice Loudness: Normal Voice Pitch: Yes: Normal Voice Phonatory-based Quality: Yes: Normal Speech Pattern: Normal Speech Clarity: < 100% Nasal Resonance: Normal Articulation: Yes: Precise Rate of Speech: Intact - Language/Auditory Comprehension Follows: Yes: 2 Stage Simple Commands Observation: Able to respond to yes/no queries: Yes, Yes/No Confusion: No, Comprehends Conversational Speech: Yes - Language/Verbal Expression Able to Respond to Simple Queries: Yes: WNL Able to Communicate Wants and Needs: Yes: WNL Functional Communication Status: Yes: WNL - Memory/Perception terminal clerk Memory: Yes: WNL Short Term Memory: Yes: WNL - Swallow Evaluation/Bedside Assessment Current Nutritional Intake: Regular, Thin Liquids Oral Secretions: Yes: WFL Dentition: Yes: Adequate Facial Symmetry at Rest: Facial Droop Left (old Agrawal's Palsy) Facial Symmetry on Retraction: Facial Droop Left (slight) Facial Movement: Controlled Sensation: Normal Against Resistance Opening: Normal Against Resistance Closing: Normal Pucker Lips: Normal Smile: Normal Lingual Movement: Normal, Symmetric Lingual Speed of Movement: Normal Lingual Movement Strgth Against Opposition: Normal Lingual Movement Characteristics: Normal Velopharyngeal Movement: Normal Laryngeal Elevation: WFL Laryngeal Movement: Able to Palpate Bolus Size: WFL Labial Seal: WFL Chewing: WFL Oral Prep Time: WFL A-P Transit: WFL Pocketing: None Timing of Swallow: WFL Coughing/Throat Clear: No Change in Voice: No Recommendations - Speech Evaluation, Impression/Plan Impression: Mild Left faCIAL.Speech,language, cognition, swallowing intact - Disposition Discharge to: To be Determined - Dysphagia Impressions/Plan Swallowing Skills: WF Dysphagia Impressions: No Impairment *Silent aspiration: cannot be R/O at bedside - Recommendations Diet Consistency: Regular Medication Administration: Whole with water Liquids: Thin Liquids
--- NOTE | 2019-11-13 15:09 | PN.GI ---
GI Progress Note Subjective: No acute events EGD yesterday performed by Dr. 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 - Objective Vital Signs: Vital Signs Temperature 98.4 F 11/13/19 12:00 Pulse Rate 94 H 11/13/19 12:00 Respiratory Rate 11/13/19 12:00 Blood Pressure 130/59 L 11/13/19 12:00 O2 Sat by Pulse Oximetry (%) 100 11/13/19 09:00 Constitutional: Calm Eyes: No: Sclera Icterus Cardiovascular: Yes: Regular Rate and Rhythm Respiratory: Yes: CTA Bilaterally Gastrointestinal Inspection: No: Distention ...Auscultate: Yes: Normoactive Bowel Sounds ...Palpate: No: Hepatomegaly, Splenomegaly, Tenderness ...Percussion: No: Tympanitic Extremities: Yes: Other (Right leg brace / dressing in place) Neurological: Yes: Alert Labs: CBC, BMP 11/13/19 06:10 11/13/19 06:10 INR, PTT INR 1.05 (0.83-1.09) 11/10/19 17:40 Problem List - Problems (1) Symptomatic anemia Assessment/Plan: No overt bleeding or dark bowel movements reported. Monitor H/H. and for overt bleeding. Await pathology results from EGD protonix 40mg daily Avoid NSAIDs If continued dwindling h/h gross bleeding / persistent melena, colonoscopy as inpatient, otherwise continued outpatient evaluation. Code(s): D64.9 - ANEMIA, UNSPECIFIED
--- NOTE | 2019-11-13 16:32 | PN ---
Physical Exam: SUBJECTIVE: Patient seen and examined GERRY Had dark, sticky BM O/N in the commode. Denies SOB, CP, lightheadedness OBJECTIVE: Vital Signs Period Temp Pulse Resp BP Sys/Dumont Pulse Ox Last 24 Hr 97.1 F-99.8 F 78-205 14-20 118-133/54-72 99-100 GENERAL: The patient is awake, alert, and fully oriented, in no acute distress. Pleasant HEAD: NC/AT. EYES: extraocular movements intact, sclera anicteric, mild conjunctival pallor, conjunctiva clear. No ptosis. ENT: Ears normal, nares patent, moist mucous membranes. NECK: Trachea midline, full range of motion, supple. No cervical LAD LUNGS: Breath sounds equal, clear to auscultation bilaterally, no wheezes, no crackles, no accessory muscle use. HEART: Regular rate and rhythm, S1, S2 without murmur, rub or gallop. ABDOMEN: Soft, nontender, nondistended, normoactive bowel sounds, no guarding, no rebound. RECTAL: dark melanotic stool with red streak on ELYSE EXTREMITIES: 2+ pulses, warm, well-perfused, no edema. NEUROLOGICAL: Cranial nerves II through XII grossly intact. PSYCH: Normal mood, normal affect. SKIN: Pale skin. Warm, dry, normal turgor, no rashes or lesions noted Laboratory Results - last 24 hr 11/10/19 11/12/19 11/12/19 19:05 21:30 21:30 WBC 10.3 H RBC 3.16 L Hgb 10.1 L Hct 28.8 L D MCV 90.9 MCH 31.9 MCHC 35.0 RDW 14.4 Plt Count 289 MPV 7.7 Sodium 144 Potassium 3.6 Chloride 112 H Carbon Dioxide 27 Anion Gap 4 L BUN 29.1 H Creatinine 1.0 Est GFR (CKD-EPI)AfAm 87.99 Est GFR (CKD-EPI)NonAf 75.92 Random Glucose 134 H Calcium 8.4 L Phosphorus 2.6 Magnesium 1.8 Stool Occult Blood Blood Type O POSITIVE Antibody Screen Negative Crossmatch See Detail 11/13/19 11/13/19 11/13/19 06:10 06:10 13:07 WBC 10.0 RBC 2.84 L Hgb 9.1 L Hct 25.4 L MCV 89.2 MCH 32.0 MCHC 35.8 RDW 14.5 Plt Count 271 MPV 7.9 Sodium 141 Potassium 3.5 Chloride 110 H Carbon Dioxide 26 Anion Gap 5 L BUN 22.5 H Creatinine 0.8 Est GFR (CKD-EPI)AfAm 104.90 Est GFR (CKD-EPI)NonAf 90.51 Random Glucose 98 Calcium 7.8 L Phosphorus 3.5 Magnesium 1.9 Stool Occult Blood Positive Blood Type Antibody Screen Crossmatch Active Medications Generic Name Dose Route Start Last Admin Trade Name Freq PRN Reason Stop Dose Admin Atorvastatin Calcium 40 mg 11/11/19 22:00 11/12/19 22:25 Lipitor - PO 40 mg HS CARLA Administration Fentanyl 25 mcg 11/12/19 18:15 Sublimaze Injection - IVPUSH [id number] PRN PAIN-PACU ORDER X 4 DOSES ONLY Sodium Chloride 1,000 mls @ 100 mls/hr 11/12/19 18:15 11/12/19 22:38 Normal Saline - IV 100 mls/hr ASDIR CARLA Administration Nicotine 14 mg 11/11/19 10:00 11/13/19 09:19 Nicoderm Patch - TD 14 mg DAILY CARLA Administration Ondansetron HCl 4 mg 11/12/19 18:15 Zofran Injection IVPUSH Q6H PRN NAUSEA AND/OR VOMITING Pantoprazole Sodium 40 mg 11/13/19 10:00 11/13/19 09:19 Protonix - PO 40 mg DAILY CARLA Administration ASSESSMENT/PLAN: 69y/o male with HTN, hx of Left-sided Agrawal's Palsy(40ys prior), alcohol use disorder, tobacco use disorder, and distal RLE fx repair (10/31/19 and 11/06/19) presented following multiple episodes of AMS(fluent aphasia, LUE weakness) and weakness. He also reports dark stool during his admission for RLE fx repair. CTH neg for acute path. FOBT (+). Hgb ~7 on admission. Carotid doppler(11/12/19) with R ICA 60-79% stenosis. Started on atorvastatin 40mg. S/P pRBC x5 with little improvement in Hgb. EGD done emergently to evaluate for uGIB showing a gastric ulcer, multiple smaller duodenal ulcers, duodenal poly. 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; small vessel microangiopathic ischemia of the subcortical white matter > Echo(11/12/19): LVEF 60-65%, PASP >27mmHg > carotid doppler(11/12/19): R ICA 60-79% stenosis > CTA chest(11/12/19): neg PE, mild-mod COPD -Atorvastatin 40mg QD -speech/swallow consult -neuro(Eron) consult: --hold ASA and antiplatelet drugs for bleeding(source unknown), use SCDs --S&S --Lipids: LDL 58, HDL 31, TG 86 #ETOH use disorder -drinks 6 beers daily -CIWA 0 now -will monitor for withdrawal symptoms and manage #tobacco use disorder -nicotine patch #HTN -hold home meds in light of current pressure DVT Ppx SCD left leg FEN NS 100mL/hr pantoprazole gtt NPO dispo tele Visit type - Emergency Visit Emergency Visit: No - New Patient This patient is new to me today: No - Critical Care Critical Care patient: No ATTENDING PHYSICIAN STATEMENT I saw and evaluated the patient. I reviewed the resident's note and discussed the case with the resident. I agree with the resident's findings and plan as documented. SUBJECTIVE: OBJECTIVE: ASSESSMENT AND PLAN:
--- NOTE | 2019-11-13 18:28 | PN ---
Teaching Attending Note Name of Resident: Jorge Elkinsung ATTENDING PHYSICIAN STATEMENT I saw and evaluated the patient. I reviewed the resident's note and discussed the case with the resident. I agree with the resident's findings and plan as documented. SUBJECTIVE: seen at 9 am. reports a large BM with black stool last night . non this am . no abd pain, no dizziness, no weakness, numbness or tingling OBJECTIVE: NAD, awake, alert oriented and cooperative. MMM. CV: RRR, 2/6 SM at apex . Bruit heard over R carotid artery Lungs: CTAB Abd: soft, NT, ND , NL BS Ext: No edema , no erythema on LLE. Dp 2+ . R leg and foot in a cast. can move toes Neuro: Nl speech , EOMI, round equal pupils, reactive to light. slight effacement of the L nasolabial fold. tongue and uvula at mid line. Nl facial sensation . Strength : RUE, LUE: 5/5 shoudler shrug, shoulder abduction, biceps, triceps . nl hand pediatrician managing partner bilaterally LLE: 5/5 hip flexion, knee flexion /extension , and ankle dorsiflexion/ plantarflexion. RLE: 5/5 Hip flexion. Rest not done due to cast. reflexes: 2+ knee jerk b/l. 2+ biceps and BR b/l Rectal exam per Dr. delatorre showed brown stool with no black or red coloring. Painful hemorrhoids Assessment/Plan: 69 y/o gentleman with h/o HTN, heart murmur, L sided Agrawal's Palsy , and recent RLE Fx s/p surgical intervention ( [facility] 10/31/19-11/09/19) . He presented with an episode of aphasia and was found to be anemic. 1- Acute blood loss anemia. Due to gastric and duodenal ulcers. - follow bx report - cont po protonix. - stable hb . no signs of active bleed . rectal exam with brown stool. the large black BM last night was probably residual bleed 2- Acute left cortical stroke: suspected to be a watershed infarct - vascular eval for R sided carotid stenosis ( not on side of stroke ) - No need for ASA per neuro - transfuse to keep Hb > 9 - cont lipitor - cont tele - DC IVF 3- H/o HTN: hold HTN meds due to GI bleed. 4- Recent RLE Fx: scheduled for f/u on 11/16 at [facility] . IF Hb is satable with no signs of acitve bleed. possible dc home tomorrow
[2019-11-13 19:03] LABS: HEMATOCRIT 27.8 % (35.4-49); HEMOGLOBIN 9.6 GM/dL (11.7-16.9); MCH 31.3 pg (25.7-33.7); MCHC 34.4 g/dl (32.0-35.9); MEAN CELL VOLUME 90.9 fl (80-96); MEAN PLT VOLUME 8.1 fl (7.5-11.1); PLATELET COUNT 294 K/MM3 (134-434); RBC 3.06 M/mm3 (4.00-5.60); RDW 14.5 % (11.9-15.9)
[2019-11-13 20:04] LABS: COCAINE, UR NEGATIVE ng/ml (CUTOFF=300); METHADONE, UR NEGATIVE ng/ml (CUTOFF=300); OPIATES, URI NEGATIVE ng/ml (CUTOFF=300); PHENCYCLIDINE,URINE NEGATIVE ng/ml (CUTOFF=25); URINE AMPHETAMINES NEGATIVE ng/ml (CUTOFF=500); URINE BARBITURATES NEGATIVE ng/ml (CUTOFF=200); URINE BENZODIAZEPINES NEGATIVE ng/ml (CUTOFF=200)
[2019-11-13] MEDS: ATORVASTATIN CA 40 MG TABLET (FP) PO SCH (21:39)
[2019-11-14 07:26] LABS: HEMATOCRIT 25.8 % (35.4-49); HEMOGLOBIN 8.9 GM/dL (11.7-16.9); MCH 31.5 pg (25.7-33.7); MCHC 34.6 g/dl (32.0-35.9); PLATELET COUNT 302 K/MM3 (134-434); RBC 2.84 M/mm3 (4.00-5.60); RDW 14.8 % (11.9-15.9); WHITE BLOOD COUNT 7.2 K/mm3 (4.0-10.0)
[2019-11-14 08:00] LABS: BLOOD UREA NITROGEN 21.4 mg/dL (7-18); CREATININE 0.8 mg/dL (0.55-1.3); MAGNESIUM 1.9 mg/dL (1.8-2.4); PHOSPHOROUS 3.6 mg/dL (2.5-4.9); POTASSIUM 3.6 mmol/L (3.5-5.1)
--- NOTE | 2019-11-14 08:54 | PN ---
Teaching Attending Note Name of Resident: Jorge Romo ATTENDING PHYSICIAN STATEMENT I saw and evaluated the patient. I reviewed the resident's note and discussed the case with the resident. I agree with the resident's findings and plan as documented. SUBJECTIVE: Patient has no new complains. no shortness of breath. OBJECTIVE: Vital Signs Temperature 98.1 F 11/14/19 06:00 Pulse Rate 78 11/14/19 06:00 Respiratory Rate 18 11/14/19 06:00 Blood Pressure 115/63 11/14/19 06:00 O2 Sat by Pulse Oximetry (%) 99 11/13/19 21:00 GENERAL: The patient is awake, alert, and fully oriented, in no acute distress. HEAD: Normal with no signs of trauma. EYES: PERRL, extraocular movements intact, sclera anicteric, conjunctiva clear. ENT: Ears normal, oropharynx clear without exudates, moist mucous membranes. NECK: Trachea midline, full range of motion, supple. LUNGS: Breath sounds equal, clear to auscultation bilaterally, no wheezes, no crackles, no accessory muscle use. HEART: Regular rate and rhythm, S1, S2 without murmur, rub or gallop. ABDOMEN: Soft, nontender, nondistended, normoactive bowel sounds, no guarding, no rebound, no hepatosplenomegaly, no masses. EXTREMITIES: 2+ pulses, warm, well-perfused, no edema. NEUROLOGICAL: Cranial nerves II through XII grossly intact. Normal speech, gait not observed. PSYCH: Normal mood, normal affect. SKIN: Warm, dry, normal turgor, no rashes or lesions noted CBCD WBC 7.2 K/mm3 (4.0-10.0) 11/14/19 06:10 RBC 2.84 M/mm3 (4.00-5.60) L 11/14/19 06:10 Hgb 8.9 GM/dL (11.7-16.9) L 11/14/19 06:10 Hct 25.8 % (35.4-49) L 11/14/19 06:10 MCV 91.0 fl (80-96) 11/14/19 06:10 MCHC 34.6 g/dl (32.0-35.9) 11/14/19 06:10 RDW 14.8 % (11.9-15.9) 11/14/19 06:10 Plt Count 302 K/MM3 (134-434) 11/14/19 06:10 MPV 8.0 fl (7.5-11.1) 11/14/19 06:10 CMP Sodium 141 mmol/L (136-145) 11/14/19 06:10 Potassium 3.6 mmol/L (3.5-5.1) 11/14/19 06:10 Chloride 110 mmol/L (98-107) H 11/14/19 06:10 Carbon Dioxide 27 mmol/L (21-32) 11/14/19 06:10 Anion Gap 5 MMOL/L (8-16) L 11/14/19 06:10 BUN 21.4 mg/dL (7-18) H 11/14/19 06:10 Creatinine 0.8 mg/dL (0.55-1.3) 11/14/19 06:10 Random Glucose 101 mg/dL (74-106) 11/14/19 06:10 Calcium 8.0 mg/dL (8.5-10.1) L 11/14/19 06:10 Total Bilirubin 0.9 mg/dL (0.2-1) 11/11/19 08:00 AST 33 U/L (15-37) 11/11/19 08:00 ALT 22 U/L (13-61) 11/11/19 08:00 Alkaline Phosphatase 53 U/L (45-117) 11/11/19 08:00 Total Protein 4.9 g/dl (6.4-8.2) L 11/11/19 08:00 Albumin 2.2 g/dl (3.4-5.0) L 11/11/19 08:00 CARDIAC ENZYMES Creatine Kinase 153 U/L (26-308) 11/10/19 17:40 Troponin I 0.02 ng/ml (0.00-0.05) 11/10/19 17:40 Current Medications Generic Name Dose Route Start Last Admin Trade Name Freq PRN Reason Stop Dose Admin Atorvastatin Calcium 40 mg 11/11/19 22:00 11/13/19 21:39 Lipitor - PO 40 mg HS CARLA Administration Fentanyl 25 mcg 11/12/19 18:15 Sublimaze Injection - IVPUSH [id number] PRN PAIN-PACU ORDER X 4 DOSES ONLY Nicotine 14 mg 11/11/19 10:00 11/13/19 09:19 Nicoderm Patch - TD 14 mg DAILY CARLA Administration Ondansetron HCl 4 mg 11/12/19 18:15 Zofran Injection IVPUSH Q6H PRN NAUSEA AND/OR VOMITING Pantoprazole Sodium 40 mg 11/13/19 10:00 11/13/19 09:19 Protonix - PO 40 mg DAILY CARLA Administration Home Medications Medication Instructions Recorded Lisinopril 40 mg PO DAILY 11/10/19 Amlodipine Besylate [Norvasc -] 5 mg PO DAILY 11/12/19 Metoprolol Succinate [Toprol Xl] 100 mg PO DAILY 11/12/19 Assessment and plan: Patient is a 69yom with Pmhx of h/o HTN, heart murmur, L sided Agrawal's Palsy , and recent RLE Fx s/p surgical intervention ( [facility] 10/31/19-11/09/19) . He presented with an episode of aphasia and was found to be anemic. # Acute blood loss anemia. Due to gastric and duodenal ulcers. Follow bx report , continue protonix. H/h is stable nowtransfuse to keep Hb > 9 # Acute left cortical stroke: suspected to be a watershed infarct, vascular eval for R sided carotid stenosis ( not on side of stroke ) No need for ASA per neuro, continue lipitor, patient will be going to colonoscopy. # H/o HTN: hold HTN meds due to GI bleed. # Recent RLE Fx: scheduled for f/u on 11/[address] [facility] IF Hb is stable with no signs of active bleed. possible dc home tomorrow
[2019-11-14] MEDS: PANTOPRAZOLE 40 MG TABLET PO SCH ×2 (09:49→21:46)
[2019-11-14] MEDS: NICOTINE 14 MG/24 HOURS TOPICAL PATCH TD SCH (09:49)
--- NOTE | 2019-11-14 11:50 | PN.GI ---
GI Progress Note Subjective: No acute events Hgb has drifted down a bit. No BM today - Objective Vital Signs: Vital Signs Temperature 98.1 F 11/14/19 06:00 Pulse Rate 78 11/14/19 06:00 Respiratory Rate 18 11/14/19 06:00 Blood Pressure 115/63 11/14/19 06:00 O2 Sat by Pulse Oximetry (%) 99 11/13/19 21:00 Constitutional: Calm Eyes: No: Sclera Icterus Cardiovascular: Yes: Regular Rate and Rhythm Gastrointestinal Inspection: No: Distention ...Auscultate: Yes: Normoactive Bowel Sounds ...Percussion: No: Tympanitic Edema: No (No LE edema) Neurological: Yes: Alert Labs: CBC, BMP 11/14/19 06:10 11/14/19 06:10 INR, PTT INR 1.05 (0.83-1.09) 11/10/19 17:40 Problem List - Problems (1) Symptomatic anemia Assessment/Plan: Discussed finding of persistent anemia. Offered colonoscopy to exclude lower GI source of blood loss such as bleeding blood vessels, polyps or colon cancer. Discussed potential risks of the procedure like but not limited to bleeding, perforation requiring surgery to repair, infection, sedation medication effects all of which could be potentially life threatening. I explained that if he was amenable, I could change his lunch to clear liquids and start prepping for colonoscopy tomorrow. He was uncertain and feels that he may want to wait and follow-up with his PMD to arrange outpatient colonoscopy. He wanted to discuss with his family. Code(s): D64.9 - ANEMIA, UNSPECIFIED
--- NOTE | 2019-11-14 11:52 | PN ---
Progress Note, [employer] - Note Progress Note: # Acute blood loss anemia. Due to gastric and duodenal ulcers. # Acute left cortical stroke: suspected to be a watershed infarct Selected Entries 11/10/19 11/10/19 11/10/19 17:19 23:15 23:30 Breakfast Intake, Oral Amount Temperature 99.5 F 99.5 F Blood Pressure 110/60 Blood Pressure 109/60 107/55 L [Right Arm] 11/11/19 11/11/19 11/11/19 02:10 03:53 04:08 Breakfast Intake, Oral Amount Temperature 99.8 F H 98.7 F 99.4 F Blood Pressure Blood Pressure 103/64 102/60 98/59 L [Right Arm] 11/11/19 11/11/19 11/11/19 06:00 06:54 08:00 Breakfast Intake, Oral Amount Temperature 99.1 F 98.8 F 98.1 F Blood Pressure Blood Pressure 105/55 L 104/57 L 118/75 [Right Arm] 11/11/19 11/11/19 11/11/19 11:44 17:00 17:21 Breakfast Intake, Oral Amount Temperature 98.2 F Blood Pressure Blood Pressure 102/55 L 105/65 107/56 L [Right Arm] 11/11/19 11/12/19 11/12/19 20:21 01:10 02:15 Breakfast Intake, Oral Amount Temperature 98.0 F 99.4 F 99.4 F Blood Pressure Blood Pressure 98/59 L 109/52 L 100/53 L [Right Arm] 11/12/19 11/12/19 11/12/19 02:50 06:30 07:49 Breakfast Intake, Oral Amount Temperature 99.2 F 99.0 F 98.5 F Blood Pressure Blood Pressure 113/54 L 103/54 L 109/57 L [Right Arm] 11/12/19 11/12/19 11/12/19 08:55 09:15 12:01 Breakfast Intake, Oral Amount Temperature 98.3 F 98.2 F 98.7 F Blood Pressure Blood Pressure 108/58 L 100/55 L 108/44 L [Right Arm] 11/12/19 11/12/19 11/12/19 13:00 13:27 14:35 Breakfast Intake, Oral Amount Temperature 98.4 F 98.2 F 98.1 F Blood Pressure Blood Pressure 118/54 L 117/57 L 119/60 [Right Arm] 11/12/19 11/12/19 11/12/19 16:32 16:45 17:00 Breakfast Intake, Oral Amount Temperature 98.3 F 98.3 F Blood Pressure 119/66 127/64 128/66 Blood Pressure [Right Arm] 11/12/19 11/12/19 11/12/19 17:15 17:30 17:45 Breakfast Intake, Oral Amount Temperature Blood Pressure 130/72 120/54 L 133/66 Blood Pressure [Right Arm] 11/12/19 11/12/19 11/13/19 18:00 20:59 02:00 Breakfast Intake, Oral Amount Temperature 98.1 F 97.1 F L 99.8 F H Blood Pressure 118/61 120/67 130/62 Blood Pressure [Right Arm] 11/13/19 11/13/19 11/14/19 05:56 06:33 02:13 Breakfast Intake, Oral 100 Amount Temperature 99.2 F 98.8 F Blood Pressure 118/64 Blood Pressure [Right Arm] 11/14/19 11/14/19 06:00 11:23 Breakfast 100% Intake, Oral Amount Temperature 98.1 F Blood Pressure Blood Pressure [Right Arm] Laboratory Tests 11/11/19 11/12/19 11/13/19 08:00 13:40 06:10 WBC 6.7 7.1 10.0 11/14/19 06:10 WBC 7.2 Speech/language intact. Tolerating diet. No further f/u indicated.
[2019-11-14] MEDS ORDERED: POTASSIUM CHLORIDE TABS 20 MEQ TABLET.ER (FP) PO ONE (13:30)
[2019-11-14] MEDS ORDERED: MAGNESIUM CL 64 MG TABLET.SA PO ONE (13:30)
--- NOTE | 2019-11-14 13:54 | PN ---
Progress Note (short form) - Note Progress Note: Advised by nurse that Mr. Andrade agreed to colonoscopy. He ate lunch already, therefore, will place on clears tomorrow and bowel prep for 11/16 colonoscopy. Problem List - Problems (1) Symptomatic anemia Code(s): D64.9 - ANEMIA, UNSPECIFIED
--- NOTE | 2019-11-14 14:43 | PATH ---
Surgical Pathology Report Patient Name: BRANDON RYDER Med. Rec. #: [id number] /Age/Gender: 1950 (Age: 69) / M Account: [id number] Location: 4 W TELEMETRY U Taken: 11/12/2019 Received: 11/13/2019 Reported: 11/14/2019 Physicians: MD Vicenta Roman M.D. Specimen(s) Received A: D2 POLYP B: GASTRIC Clinical History Transient ischemic attacks, secondary anemia Postoperative diagnosis: Multiple stomach ulcers, duodenal bulb polyp Final Diagnosis A. D2 POLYP, BIOPSY: POLYPOID DUODENAL AND JUNCTIONAL MUCOSA WITH MODERATE ACUTE AND CHRONIC DUODENITIS AND FOCAL MILD SUPERFICIAL HYPERPLASTIC FEATURES. B. STOMACH, BIOPSY: GASTRIC BODY MUCOSA WITH MODERATE CHRONIC ACTIVE GASTRITIS. IMMUNOHISTOCHEMICAL STAIN FOR H. PYLORI IS POSITIVE ([place]). Electronically Signed Barb Hoover M.D. Gross Description A. Received in formalin, labeled "D2 polyp" is a bucio, irregular portion of soft tissue measuring 0.5 cm. in greatest dimension. The specimen is submitted in toto in one cassette. B. Received in formalin, labeled "stomach biopsy" are 4 bucio, irregular portions of soft tissue ranging from 0.1-0.5 cm. in greatest dimension. The specimens are submitted in toto in one cassette. /11/13/2019 saudi11/13/2019
[2019-11-14] MEDS ORDERED: PT OWN MED DRAWER 7, Y5N ONE (15:05)
--- NOTE | 2019-11-14 17:05 | PN ---
Physical Exam: SUBJECTIVE: Patient seen and examined NAEON Tele: nonsustained PVCs, artifacts read as Vtach Denies having dark melanotic O/N. Has good appetite, no abd pain. OBJECTIVE: Vital Signs Period Temp Pulse Resp BP Sys/Dumont Pulse Ox Last 24 Hr 98.1 F-98.8 F 76-102 18-24 107-126/55-70 99-99 GENERAL: The patient is awake, alert, and fully oriented, in no acute distress. Pleasant HEAD: NC/AT. EYES: extraocular movements intact, sclera anicteric, mild conjunctival pallor, conjunctiva clear. No ptosis. ENT: Ears normal, nares patent, moist mucous membranes. NECK: Trachea midline, full range of motion, supple. No cervical LAD LUNGS: Breath sounds equal, clear to auscultation bilaterally, no wheezes, no crackles, no accessory muscle use. HEART: Regular rate and rhythm, S1, S2 without murmur, rub or gallop. ABDOMEN: Soft, nontender, nondistended, normoactive bowel sounds, no guarding, no rebound. RECTAL: external hemorrhoids noted, no melanotic stools on external exam EXTREMITIES: 2+ pulses, warm, well-perfused, no edema. NEUROLOGICAL: moving all extremities spontaneously PSYCH: Normal mood, normal affect. SKIN: Pale skin. Warm, dry, normal turgor, no rashes or lesions noted Laboratory Results - last 24 hr 11/10/19 11/13/19 11/13/19 19:05 16:40 18:00 WBC 8.0 RBC 3.06 L Hgb 9.6 L Hct 27.8 L MCV 90.9 MCH 31.3 MCHC 34.4 RDW 14.5 Plt Count 294 MPV 8.1 Sodium Potassium Chloride Carbon Dioxide Anion Gap BUN Creatinine Est GFR (CKD-EPI)AfAm Est GFR (CKD-EPI)NonAf Random Glucose Calcium Phosphorus Magnesium Opiates Screen Negative Methadone Screen Negative Barbiturate Screen Negative Phencyclidine Screen Negative Ur Amphetamines Screen Negative MDMA (Ecstasy) Screen Negative Benzodiazepines Screen Negative Cocaine Screen Negative U Marijuana (THC) Screen Negative Blood Type O POSITIVE Antibody Screen Negative Crossmatch See Detail 11/14/19 11/14/19 06:10 06:10 WBC 7.2 RBC 2.84 L Hgb 8.9 L Hct 25.8 L MCV 91.0 MCH 31.5 MCHC 34.6 RDW 14.8 Plt Count 302 MPV 8.0 Sodium 141 Potassium 3.6 Chloride 110 H Carbon Dioxide 27 Anion Gap 5 L BUN 21.4 H Creatinine 0.8 Est GFR (CKD-EPI)AfAm 104.90 Est GFR (CKD-EPI)NonAf 90.51 Random Glucose 101 Calcium 8.0 L Phosphorus 3.6 Magnesium 1.9 Opiates Screen Methadone Screen Barbiturate Screen Phencyclidine Screen Ur Amphetamines Screen MDMA (Ecstasy) Screen Benzodiazepines Screen Cocaine Screen U Marijuana (THC) Screen Blood Type Antibody Screen Crossmatch Active Medications Generic Name Dose Route Start Last Admin Trade Name Freq PRN Reason Stop Dose Admin Atorvastatin Calcium 40 mg 11/11/19 22:00 11/13/19 21:39 Lipitor - PO 40 mg HS CARLA Administration Bisacodyl 20 mg 11/15/19 13:00 Dulcolax - PO 11/15/19 13:01 ONCE ONE Fentanyl 25 mcg 11/12/19 18:15 Sublimaze Injection - IVPUSH [id number] PRN PAIN-PACU ORDER X 4 DOSES ONLY Nicotine 14 mg 11/11/19 10:00 11/14/19 09:49 Nicoderm Patch - TD 14 mg DAILY CARLA Administration Ondansetron HCl 4 mg 11/12/19 18:15 Zofran Injection IVPUSH Q6H PRN NAUSEA AND/OR VOMITING Pantoprazole Sodium 40 mg 11/13/19 10:00 11/14/19 09:49 Protonix - PO 40 mg DAILY CARLA Administration Polyethylene Glycol 17 gm 11/14/19 14:00 Miralax (For Daily Use) - PO DAILY CARLA Polyethylene Glycol/Electrolytes 4,000 ml 11/15/19 14:00 Golytely Solution - PO 11/15/19 14:01 ONCE ONE ASSESSMENT/PLAN: 69y/o male with HTN, hx of Left-sided Agrawal's Palsy(40ys prior), alcohol use disorder, tobacco use disorder, and distal RLE fx repair (10/31/19 and 11/06/19) presented following multiple episodes of AMS(fluent aphasia, LUE weakness) and weakness. He also reports dark stool during his admission for RLE fx repair. CTH neg for acute path. 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 FOBT (+). Hgb ~7 on admission. Carotid doppler(11/12/19 ) with R ICA 60-79% stenosis. Started on atorvastatin 40mg. S/P pRBC x5 with little improvement in Hgb. EGD done emergently to evaluate for uGIB showing a gastric ulcer, multiple smaller duodenal ulcers, duodenal poly. Biopsy results showing duodenal polyp with mild hyperplastic features, gastric mucosa immunohistochemistry stained positive for H pylori. GI planning for lower endoscopy on 11/16/19 for persistently low Hgb #symptomatic anemia 2/2 GI bleed --stablizing ---Hgb Goal 8-9 > FOBT(11/10/19, 11/13/19): positive > Hgb 7.0, 7.5, 8.1, 7.7, 7.9, 10.1, 9.1, 9.6, 8.9 > iron studies: Iron Sat 81%, ferritin 447.6 --pt received pRBC ---likely not iron overload --GI: repeat studies, while fasting > EGD path: --D2 polyp: mod acute/chronic duodenitis w/ mild superficial hyperplastic features --gastric body: mod chronic gastritis, immunohistochem positive for H pylori -s/p PRBCs x5 -s/p protonix drip --> pantoprazole 40mg BID -GI(Jac) consulted --s/p EGD(11/12/19) with gastric and duodenal ulcers --protonix drip then protonix 40mg PO QD --> changed to protonix 40mg BID -ICU consulted --not accepted d/t HD stability #AMS 2/2 CVA/TIA vs anemia > B12 level: 537 --norm > folate level: 16 --norm > Lipid panel: LDL 58, HDL 31, TG 86 > CT head(11/10/19): negative for acute processes > MRI brain(11/12/19): 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; small vessel microangiopathic ischemia of the subcortical white matter > Echo(11/12/19): LVEF 60-65%, PASP >27mmHg > carotid doppler(11/12/19): R ICA 60-79% stenosis > CTA chest(11/12/19): neg PE, mild-mod COPD -Atorvastatin 40mg QD -speech/swallow consult -neuro(Eron) consult: --hold ASA and antiplatelet drugs for bleeding(source unknown), use SCDs --S&S --Lipids: LDL 58, HDL 31, TG 86 #ETOH use disorder -drinks 6 beers daily -CIWA 0 now -will monitor for withdrawal symptoms and manage #tobacco use disorder -nicotine patch #HTN -hold home meds in light of current pressure DVT Ppx SCD left leg FEN - CLD d/t colonoscopy on 11/16/19 dispo tele Visit type - Emergency Visit Emergency Visit: No - New Patient This patient is new to me today: No - Critical Care Critical Care patient: No ATTENDING PHYSICIAN STATEMENT I saw and evaluated the patient. I reviewed the resident's note and discussed the case with the resident. I agree with the resident's findings and plan as documented. SUBJECTIVE: OBJECTIVE: ASSESSMENT AND PLAN:
[2019-11-14] MEDS: POLYETHYLENE GLYCOL 3350 119 GM BTL PO SCH (17:15)
[2019-11-14] MEDS: SODIUM CHLORIDE 1,000 ML IV SCH (17:16)
[2019-11-14] MEDS: ATORVASTATIN CA 40 MG TABLET (FP) PO SCH (21:46)
[2019-11-14] MEDS ORDERED: DOCUSATE SODIUM 100 MG CAPSULE (FP) PO SCH (22:00)
[2019-11-15 06:53] LABS: BASO % 0.7 % (0-2.0); EOS % 2.6 % (0-4.5); HEMOGLOBIN 9.3 GM/dL (11.7-16.9); MCH 31.6 pg (25.7-33.7); MCHC 34.5 g/dl (32.0-35.9); MEAN CELL VOLUME 91.7 fl (80-96); MEAN PLT VOLUME 8.2 fl (7.5-11.1); MONO % 9.9 % (3.8-10.2); NEUT % 69.8 % (42.8-82.8); PLATELET COUNT 294 K/MM3 (134-434); RBC 2.94 M/mm3 (4.00-5.60); RDW 14.4 % (11.9-15.9); WHITE BLOOD COUNT 6.7 K/mm3 (4.0-10.0)
[2019-11-15 07:21] LABS: PHOSPHOROUS 3.2 mg/dL (2.5-4.9)
[2019-11-15 07:22] LABS: BLOOD UREA NITROGEN 19.5 mg/dL (7-18); CALCIUM 8.6 mg/dL (8.5-10.1); CREATININE 0.9 mg/dL (0.55-1.3); POTASSIUM 3.9 mmol/L (3.5-5.1)
[2019-11-15] MEDS ORDERED: POTASSIUM CHLORIDE TABS 10 MEQ TABLET.ER (FP) PO ONE (09:15)
[2019-11-15] MEDS: POLYETHYLENE GLYCOL 3350 119 GM BTL PO SCH (09:34)
[2019-11-15] MEDS: PANTOPRAZOLE 40 MG TABLET PO SCH ×2 (09:34→21:26)
[2019-11-15] MEDS: NICOTINE 14 MG/24 HOURS TOPICAL PATCH TD SCH (09:34)
[2019-11-15] MEDS ORDERED: BISACODYL 5 MG TABLET.DR (FP) PO ONE (13:00)
[2019-11-15] MEDS ORDERED: NICOTINE 21 MG/24 HOURS TOPICAL PATCH TD SCH (13:22)
[2019-11-15] MEDS ORDERED: PEG 3350/NA SULF BICARB CL/KCL 4000 ML SOLN.RECON PO ONE (14:00)
--- NOTE | 2019-11-15 14:24 | PN ---
Progress Note (short form) - Note Progress Note: Patient h. pylori + Once bowel preparation complete should be treated: Amoxicillin 1 g BID, Clarithromycin 500mg PO BID and Protonix or equivalent PPI 20mg PO BID for 14 days Needs to be off of statin while on triple therapy Problem List - Problems (1) Symptomatic anemia Code(s): D64.9 - ANEMIA, UNSPECIFIED
--- NOTE | 2019-11-15 17:00 | PN ---
Physical Exam: SUBJECTIVE: Patient seen and examined GERRY Has dark stool, no fresh blood OBJECTIVE: Vital Signs Period Temp Pulse Resp BP Sys/Dumont Pulse Ox Last 24 Hr 97.8 F-99.2 F 79-85 18-18 107-133/55-77 95-95 GENERAL: The patient is awake, alert, and fully oriented, in no acute distress. Pleasant HEAD: NC/AT. EYES: extraocular movements intact, sclera anicteric, mild conjunctival pallor, conjunctiva clear. No ptosis. ENT: Ears normal, nares patent, moist mucous membranes. NECK: Trachea midline, full range of motion, supple. No cervical LAD LUNGS: Breath sounds equal, clear to auscultation bilaterally, no wheezes, no crackles, no accessory muscle use. HEART: Regular rate and rhythm, S1, S2 without murmur, rub or gallop. ABDOMEN: Soft, nontender, nondistended, normoactive bowel sounds, no guarding, no rebound. RECTAL: external hemorrhoids noted, no melanotic stools on external exam EXTREMITIES: 2+ pulses, warm, well-perfused, no edema. RLE in cast NEUROLOGICAL: moving all extremities spontaneously PSYCH: Normal mood, normal affect. SKIN: Pale skin. Warm, dry, normal turgor, no rashes or lesions noted Laboratory Results - last 24 hr 11/10/19 11/15/19 11/15/19 19:05 05:25 05:25 WBC 6.7 RBC 2.94 L Hgb 9.3 L Hct 27.0 L MCV 91.7 MCH 31.6 MCHC 34.5 RDW 14.4 Plt Count 294 MPV 8.2 Absolute Neuts (auto) 4.7 Neutrophils % 69.8 Lymphocytes % 17.0 Monocytes % 9.9 Eosinophils % 2.6 Basophils % 0.7 Nucleated RBC % 0 Sodium 139 Potassium 3.9 Chloride 108 H Carbon Dioxide 27 Anion Gap 4 L BUN 19.5 H Creatinine 0.9 Est GFR (CKD-EPI)AfAm 99.94 Est GFR (CKD-EPI)NonAf 86.23 Random Glucose 104 Calcium 8.6 Phosphorus Magnesium Iron 19 L TIBC Iron Saturation Unsaturated IBC Ferritin Blood Type O POSITIVE Antibody Screen Negative Crossmatch See Detail 11/15/19 05:25 WBC RBC Hgb Hct MCV MCH MCHC RDW Plt Count MPV Absolute Neuts (auto) Neutrophils % Lymphocytes % Monocytes % Eosinophils % Basophils % Nucleated RBC % Sodium Potassium Chloride Carbon Dioxide Anion Gap BUN Creatinine Est GFR (CKD-EPI)AfAm Est GFR (CKD-EPI)NonAf Random Glucose Calcium Phosphorus 3.2 Magnesium 2.0 Iron 19 L TIBC 180 L Iron Saturation 10 L Unsaturated IBC 161 L Ferritin 684.2 H Blood Type Antibody Screen Crossmatch Active Medications Generic Name Dose Route Start Last Admin Trade Name Freq PRN Reason Stop Dose Admin Atorvastatin Calcium 40 mg 11/11/19 22:00 11/14/19 21:46 Lipitor - PO 40 mg HS CARLA Administration Fentanyl 25 mcg 11/12/19 18:15 Sublimaze Injection - IVPUSH [id number] PRN PAIN-PACU ORDER X 4 DOSES ONLY Nicotine 21 mg 11/15/19 13:22 Nicoderm Patch - TD DAILY CARLA Pantoprazole Sodium 40 mg 11/14/19 22:00 11/15/19 09:34 Protonix - PO 40 mg BID CARLA Administration Polyethylene Glycol 17 gm 11/14/19 14:00 11/15/19 09:34 Miralax (For Daily Use) - PO 17 gm DAILY CARLA Administration ASSESSMENT/PLAN: 69y/o male with HTN, hx of Left-sided Agrawal's Palsy(40ys prior), alcohol use disorder, tobacco use disorder, and distal RLE fx repair (10/31/19 and 11/06/19) presented following multiple episodes of AMS(fluent aphasia, LUE weakness) and weakness. He also reports dark stool during his admission for RLE fx repair. CTH neg for acute path. 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 FOBT (+). Hgb ~7 on admission. Carotid doppler(11/12/19 ) with R ICA 60-79% stenosis. Started on atorvastatin 40mg. S/P pRBC x5 with little improvement in Hgb. EGD done emergently to evaluate for uGIB showing a gastric ulcer, multiple smaller duodenal ulcers, duodenal poly. Biopsy results showing duodenal polyp with mild hyperplastic features, gastric mucosa immunohistochemistry stained positive for H pylori. GI planning for lower endoscopy on 11/16/19 for persistently low Hgb. H pylori to be started after colonoscopy #symptomatic anemia 2/2 GI bleed --stablizing ---Hgb Goal 8-9 > FOBT(11/10/19, 11/13/19): positive > Hgb 7.0, 7.5, 8.1, 7.7, 7.9, 10.1, 9.1, 9.6, 8.9 > iron studies: Iron Sat 81%, ferritin 447.6 --pt received pRBC ---likely not iron overload --GI: repeat studies, while fasting >rpt iron studies: Iron Sat 10%, ferritin 684.2, ferritin pending > EGD path: --D2 polyp: mod acute/chronic duodenitis w/ mild superficial hyperplastic features --gastric body: mod chronic gastritis, immunohistochem positive for H pylori -s/p PRBCs x5 -s/p protonix drip --> pantoprazole 40mg BID -GI(Jac) consulted --s/p EGD(11/12/19) with gastric and duodenal ulcers --protonix drip then protonix 40mg PO QD --> changed to protonix 40mg BID -ICU consulted --not accepted d/t HD stability #H pylori infection - GI(DiGiorno) consult: --Amoxicillin 1 g BID, Clarithromycin 500mg PO BID and Protonix or equivalent PPI 20mg PO BID for 14 days --Needs to be off of statin while on triple therapy #AMS 2/2 CVA/TIA vs anemia > B12 level: 537 --norm > folate level: 16 --norm > Lipid panel: LDL 58, HDL 31, TG 86 > CT head(11/10/19): negative for acute processes > MRI brain(11/12/19): 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; small vessel microangiopathic ischemia of the subcortical white matter > Echo(11/12/19): LVEF 60-65%, PASP >27mmHg > carotid doppler(11/12/19): R ICA 60-79% stenosis > CTA chest(11/12/19): neg PE, mild-mod COPD -Atorvastatin 40mg QD -speech/swallow consult -neuro(Eron) consult: --hold ASA and antiplatelet drugs for bleeding(source unknown), use SCDs --S&S --Lipids: LDL 58, HDL 31, TG 86 #ETOH use disorder -drinks 6 beers daily -CIWA 0 now -will monitor for withdrawal symptoms and manage #tobacco use disorder -nicotine patch #HTN -hold home meds in light of current pressure DVT Ppx SCD left leg FEN - CLD d/t colonoscopy on 11/16/19 dispo tele Visit type - Emergency Visit Emergency Visit: No - New Patient This patient is new to me today: No - Critical Care Critical Care patient: No ATTENDING PHYSICIAN STATEMENT I saw and evaluated the patient. I reviewed the resident's note and discussed the case with the resident. I agree with the resident's findings and plan as documented. SUBJECTIVE: OBJECTIVE: ASSESSMENT AND PLAN:
--- NOTE | 2019-11-15 20:44 | PN ---
Teaching Attending Note Name of Resident: Jorge Romo ATTENDING PHYSICIAN STATEMENT I saw and evaluated the patient. I reviewed the resident's note and discussed the case with the resident. I agree with the resident's findings and plan as documented. SUBJECTIVE: Patient is comfortable with no acute distress. h/h continues to be stable. Vital Signs Temperature 98.8 F 11/15/19 14:00 Pulse Rate 80 11/15/19 14:00 Respiratory Rate 18 11/15/19 14:00 Blood Pressure 133/69 11/15/19 14:00 O2 Sat by Pulse Oximetry (%) 95 11/15/19 10:00 GENERAL: The patient is awake, alert, and fully oriented, in no acute distress. HEAD: Normal with no signs of trauma. EYES: PERRL, extraocular movements intact, sclera anicteric, conjunctiva clear. ENT: Ears normal, oropharynx clear without exudates, moist mucous membranes. NECK: Trachea midline, full range of motion, supple. LUNGS: Breath sounds equal, clear to auscultation bilaterally, no wheezes, no crackles, no accessory muscle use. HEART: Regular rate and rhythm, S1, S2 without murmur, rub or gallop. ABDOMEN: Soft, Nt, ND, normoactive bowel sounds, no guarding, no rebound, no hepatosplenomegaly, no masses. EXTREMITIES: 2+ pulses, warm, well-perfused, no edema. NEUROLOGICAL: Cranial nerves II through XII grossly intact. Normal speech, gait not observed. PSYCH: Normal mood, normal affect. SKIN: Warm, dry, normal turgor, no rashes or lesions noted CBCD WBC 6.7 K/mm3 (4.0-10.0) 11/15/19 05:25 RBC 2.94 M/mm3 (4.00-5.60) L 11/15/19 05:25 Hgb 9.3 GM/dL (11.7-16.9) L 11/15/19 05:25 Hct 27.0 % (35.4-49) L 11/15/19 05:25 MCV 91.7 fl (80-96) 11/15/19 05:25 MCHC 34.5 g/dl (32.0-35.9) 11/15/19 05:25 RDW 14.4 % (11.9-15.9) 11/15/19 05:25 Plt Count 294 K/MM3 (134-434) 11/15/19 05:25 MPV 8.2 fl (7.5-11.1) 11/15/19 05:25 CMP Sodium 139 mmol/L (136-145) 11/15/19 05:25 Potassium 3.9 mmol/L (3.5-5.1) 11/15/19 05:25 Chloride 108 mmol/L (98-107) H 11/15/19 05:25 Carbon Dioxide 27 mmol/L (21-32) 11/15/19 05:25 Anion Gap 4 MMOL/L (8-16) L 11/15/19 05:25 BUN 19.5 mg/dL (7-18) H 11/15/19 05:25 Creatinine 0.9 mg/dL (0.55-1.3) 11/15/19 05:25 Random Glucose 104 mg/dL (74-106) 11/15/19 05:25 Calcium 8.6 mg/dL (8.5-10.1) 11/15/19 05:25 Total Bilirubin 0.9 mg/dL (0.2-1) 11/11/19 08:00 AST 33 U/L (15-37) 11/11/19 08:00 ALT 22 U/L (13-61) 11/11/19 08:00 Alkaline Phosphatase 53 U/L (45-117) 11/11/19 08:00 Total Protein 4.9 g/dl (6.4-8.2) L 11/11/19 08:00 Albumin 2.2 g/dl (3.4-5.0) L 11/11/19 08:00 CARDIAC ENZYMES Creatine Kinase 153 U/L (26-308) 11/10/19 17:40 Troponin I 0.02 ng/ml (0.00-0.05) 11/10/19 17:40 Current Medications Generic Name Dose Route Start Last Admin Trade Name Freq PRN Reason Stop Dose Admin Atorvastatin Calcium 40 mg 11/11/19 22:00 11/14/19 21:46 Lipitor - PO 40 mg HS CARLA Administration Fentanyl 25 mcg 11/12/19 18:15 Sublimaze Injection - IVPUSH [id number] PRN PAIN-PACU ORDER X 4 DOSES ONLY Nicotine 21 mg 11/15/19 13:22 Nicoderm Patch - TD DAILY CARLA Pantoprazole Sodium 40 mg 11/14/19 22:00 11/15/19 09:34 Protonix - PO 40 mg BID CARLA Administration Polyethylene Glycol 17 gm 11/14/19 14:00 11/15/19 09:34 Miralax (For Daily Use) - PO 17 gm DAILY CARLA Administration Home Medications Medication Instructions Recorded Lisinopril 40 mg PO DAILY 11/10/19 Amlodipine Besylate [Norvasc -] 5 mg PO DAILY 11/12/19 Metoprolol Succinate [Toprol Xl] 100 mg PO DAILY 11/12/19 Assessment and plan: Patient is a 69yom with Pmhx of h/o HTN, heart murmur, L sided Agrawal's Palsy , and recent RLE Fx s/p surgical intervention ( [facility] 10/31/19-11/09/19) . He presented with an episode of aphasia and was found to be anemic. # Acute blood loss anemia. Due to gastric and duodenal ulcers. continue protonix. H/h is stable, transfuse to keep Hb > 9 , going for colonscopy as per GI # Acute left cortical stroke: suspected to be a watershed infarct, vascular eval for R sided carotid stenosis ( not on side of stroke ) No need for ASA per neuro, continue lipitor. # H/o HTN: hold HTN meds due to GI bleed. # Recent RLE Fx: scheduled for f/u on 11/16 at [facility] IF Hb is stable with no signs of active bleed. patient will be going to colonoscopy in am as per GI, if negative will dc patient home .
[2019-11-15] MEDS ORDERED: INSULIN (NOVOLOG) ASPART 100 UNITS/ML 10ML VIAL ONE (20:54)
[2019-11-15] MEDS ORDERED: PT OWN MED DRAWER 7, Y5N ONE (20:55)
[2019-11-15] MEDS: ATORVASTATIN CA 40 MG TABLET (FP) PO SCH (21:26)
[2019-11-16] MEDS: POLYETHYLENE GLYCOL 3350 119 GM BTL PO SCH (09:58)
[2019-11-16] MEDS: PANTOPRAZOLE 40 MG TABLET PO SCH (10:05)
--- NOTE | 2019-11-16 12:41 | PN ---
Progress Note (short form) - Note Progress Note: Colonoscopy complete. Procedure report left in the procedural section of the physical chart and will be scanned into [facility]. Begin h. pylori therapy, as outlined in yesterday's note, tomorrow. Problem List - Problems (1) Symptomatic anemia Code(s): D64.9 - ANEMIA, UNSPECIFIED
[2019-11-16 14:47] VITALS: BP 122/66; PULSE 121; TEMP 97.7
--- NOTE | 2019-11-16 16:42 | DS ---
Physical Exam: SUBJECTIVE: Patient seen and examined OBJECTIVE: Vital Signs Period Temp Pulse Resp BP Sys/Dumont Pulse Ox Last 24 Hr 97.3 F-98.8 F 78-121 18-20 108-135/53-73 98-100 PHYSICAL EXAM GENERAL: The patient is awake, alert, and fully oriented, in no acute distress. HEAD: Normal with no signs of trauma. EYES: PERRL, extraocular movements intact, sclera anicteric, conjunctiva clear. ENT: Ears normal, nares patent, oropharynx clear without exudates, moist mucous membranes. NECK: Trachea midline, full range of motion, supple. LUNGS: Breath sounds equal, clear to auscultation bilaterally, no wheezes, no crackles, no accessory muscle use. HEART: Regular rate and rhythm, S1, S2 without murmur, rub or gallop. ABDOMEN: Soft, nontender, nondistended, normoactive bowel sounds, no guarding, no rebound, no hepatosplenomegaly, no masses. EXTREMITIES: 2+ pulses, warm, well-perfused, no edema. NEUROLOGICAL: Cranial nerves II through XII grossly intact. Normal speech, gait not observed. PSYCH: Normal mood, normal affect. SKIN: Warm, dry, normal turgor, no rashes or lesions noted. LABS Laboratory Results - last 24 hr 11/15/19 05:25 Transferrin 144 L HOSPITAL COURSE: Date of Admission:11/10/19 Date of Discharge: 11/16/19 Minutes to complete discharge: 35 Discharge Summary Problems reviewed: Yes Reason For Visit: TRANSIENT ISCHEMIC ATTACK, SECONDARY ANEMIA Current Active Problems Symptomatic anemia (Acute) Transient ischemic attack (Acute) Condition: Stable - Instructions Diet, Activity, Other Instructions: You were evaluated in the hospital for concern of upper extremity weakness and trouble speaking. Imaging showed a small Transient Ischemic Attack. Labwork was suggestive of an anemia. You received multiple blood transfusions. A Camp Boss performed an upper endoscopy that found ulcers in your stomach and small intestines. You were found to be positive for H pylori. A colonoscopy found multiple polyps, diverticulosis, and internal hemorrhoids. Your labwork remains stable. You were deemed stable for discharge. MEDICATIONS: - NEW MEDICATIONS: --Atorvastatin[LIPITOR] 40mg, once daily. Please start(12/01/19) this medication AFTER completion of the "Triple Therapy" --TRIPLE THERAPY: to be taken for 14 days(11/17/19 - 11/30/19) --Lansoprazole/Amoxicillin/Clarithromycin [PREVPAC] for 14 days - please resume your previously prescribed blood pressure medications - AVOID NSAIDS for at least 10days Addtional instructions: - diet: high fiber diet - avoid smoking Please follow up with the Physicians below, in 1-2 weeks: - Camp Boss(Chelle): to discuss the pathology results of your colonscopy, and to discuss your H pylori. You will need another colonoscopy in 3ys - Neurologist(Eron): to discuss your Transient Ischemic Attack - Orthopedist(Giuseppe): to discuss how you should not take aspirin for at least 10 days due to your stomach ulcers - Primary Care Physician: to discuss your recent hospitalization Please seek immediate medical evaluation if you experience: - persistent black stools - nausea, vomiting, vomiting blood - severe fatigue Referrals: Lion Kearney MD [Staff Physician] - 1 Week Alli Corbett DO [Staff Physician] - 1 Week Shayne Littlejohn MD [Staff Physician] - Disposition: HOME - Home Medications Comprehensive Discharge Medication List: Ambulatory Orders Lisinopril 40 mg PO DAILY 11/10/19 Amlodipine Besylate [Norvasc -] 5 mg PO DAILY 11/12/19 Metoprolol Succinate [Toprol Xl] 100 mg PO DAILY 11/12/19 Lansoprazole/Amoxiciln/Clarith [Prevpac Patient Pack] 1 each PO BID #1 combo..pkg 11/16/19 This patient is new to me today: No Emergency Visit: No Critical Care patient: No - Discharge Referral Referred to [facility] No ATTENDING PHYSICIAN STATEMENT I saw and evaluated the patient. I reviewed the resident's note and discussed the case with the resident. I agree with the resident's findings and plan as documented. SUBJECTIVE: OBJECTIVE: ASSESSMENT AND PLAN:
--- NOTE | 2019-11-16 19:06 | PN ---
Teaching Attending Note Name of Resident: Jorge Romo ATTENDING PHYSICIAN STATEMENT I saw and evaluated the patient. I reviewed the resident's note and discussed the case with the resident. I agree with the resident's findings and plan as documented. SUBJECTIVE: Patient is comfortable with no acute distress. Vital Signs Temperature 97.7 F 11/16/19 14:45 Pulse Rate 121 H 11/16/19 14:45 Respiratory Rate 20 11/16/19 14:45 Blood Pressure 122/66 11/16/19 14:45 O2 Sat by Pulse Oximetry (%) 98 11/16/19 14:43 GENERAL: The patient is awake, alert, and fully oriented, in no acute distress. HEAD: Normal with no signs of trauma. EYES: PERRL, extraocular movements intact, sclera anicteric, conjunctiva clear. ENT: Ears normal, oropharynx clear without exudates, moist mucous membranes. NECK: Trachea midline, full range of motion, supple. LUNGS: Breath sounds equal, clear to auscultation bilaterally, no wheezes, no crackles, no accessory muscle use. HEART: Regular rate and rhythm, S1, S2 without murmur, rub or gallop. ABDOMEN: Soft, NT,ND, normoactive bowel sounds, no guarding, no rebound, no hepatosplenomegaly, no masses. EXTREMITIES: 2+ pulses, warm, well-perfused, no edema. NEUROLOGICAL: Cranial nerves II through XII grossly intact. Normal speech, gait not observed. PSYCH: Normal mood, normal affect. SKIN: Warm, dry, normal turgor, no rashes or lesions noted CBCD WBC 6.7 K/mm3 (4.0-10.0) 11/15/19 05:25 RBC 2.94 M/mm3 (4.00-5.60) L 11/15/19 05:25 Hgb 9.3 GM/dL (11.7-16.9) L 11/15/19 05:25 Hct 27.0 % (35.4-49) L 11/15/19 05:25 MCV 91.7 fl (80-96) 11/15/19 05:25 MCHC 34.5 g/dl (32.0-35.9) 11/15/19 05:25 RDW 14.4 % (11.9-15.9) 11/15/19 05:25 Plt Count 294 K/MM3 (134-434) 11/15/19 05:25 MPV 8.2 fl (7.5-11.1) 11/15/19 05:25 CMP Sodium 139 mmol/L (136-145) 11/15/19 05:25 Potassium 3.9 mmol/L (3.5-5.1) 11/15/19 05:25 Chloride 108 mmol/L (98-107) H 11/15/19 05:25 Carbon Dioxide 27 mmol/L (21-32) 11/15/19 05:25 Anion Gap 4 MMOL/L (8-16) L 11/15/19 05:25 BUN 19.5 mg/dL (7-18) H 11/15/19 05:25 Creatinine 0.9 mg/dL (0.55-1.3) 11/15/19 05:25 Random Glucose 104 mg/dL (74-106) 11/15/19 05:25 Calcium 8.6 mg/dL (8.5-10.1) 11/15/19 05:25 Total Bilirubin 0.9 mg/dL (0.2-1) 11/11/19 08:00 AST 33 U/L (15-37) 11/11/19 08:00 ALT 22 U/L (13-61) 11/11/19 08:00 Alkaline Phosphatase 53 U/L (45-117) 11/11/19 08:00 Total Protein 4.9 g/dl (6.4-8.2) L 11/11/19 08:00 Albumin 2.2 g/dl (3.4-5.0) L 11/11/19 08:00 CARDIAC ENZYMES Creatine Kinase 153 U/L (26-308) 11/10/19 17:40 Troponin I 0.02 ng/ml (0.00-0.05) 11/10/19 17:40 Home Medications Medication Instructions Recorded Lisinopril 40 mg PO DAILY 11/10/19 Amlodipine Besylate [Norvasc -] 5 mg PO DAILY 11/12/19 Metoprolol Succinate [Toprol Xl] 100 mg PO DAILY 11/12/19 Assessment and plan: Patient is a 69yom with Pmhx of h/o HTN, heart murmur, L sided Agrawal's Palsy , and recent RLE Fx s/p surgical intervention ( [facility] 10/31/19-11/09/19) . He presented with an episode of aphasia and was found to be anemic. #s/P COLONOSCOPY: mild diverticolosis, multiple sessile polyposis in descending and transverse colon. repeat colonoscopy in 3 years. avoid nsaids for 10 days, high fiber diet. Follow bx report.follow with GI for bx result. # Acute blood loss anemia. Due to gastric and duodenal ulcers. continue protonix. H/h is stable, transfuse to keep Hb > 9 , going for colonscopy as per GI # Acute left cortical stroke: suspected to be a watershed infarct, vascular eval for R sided carotid stenosis ( not on side of stroke ) No need for ASA per neuro, continue lipitor. # H/o HTN: hold HTN meds due to GI bleed. # Recent RLE Fx: scheduled for f/u on 11/16 at [facility] patient home .
--- NOTE | 2019-11-19 14:35 | PATH ---
Surgical Pathology Report Patient Name: BRANDON RYDER [facility]. Rec. #: [id number] /Age/Gender: 1950 (Age: 69) / M Account: [id number] Location: 4 W TELEMETRY U Taken: 11/16/2019 Received: 11/16/2019 Reported: 11/19/2019 Physicians: Kirk Corbett D.O. Specimen(s) Received A: DESCENDING COLON POLYP B: DESCENDING COLON POLYP C: TRANSVERSE COLON POLYPS D: TRANSVERSE COLON POLYP Clinical History Anemia, guaiac Postoperative diagnosis: Colon polyps, diverticulosis Final Diagnosis A. DESCENDING COLON, POLYP, HOT SNARE POLYPECTOMY: TUBULAR ADENOMA. B. DESCENDING COLON, POLYP, COLD SNARE POLYPECTOMY: POLYPOID COLONIC MUCOSA WITH MILD SUPERFICIAL HYPERPLASTIC FEATURES. C. TRANSVERSE COLON, POLYPS, COLD SNARE POLYPECTOMY: TUBULAR ADENOMA(S). D. TRANSVERSE COLON, POLYP, HOT SNARE POLYPECTOMY: TUBULAR ADENOMA. Electronically Signed Barb Hoover M.D. Gross Description A. Received in formalin, labeled "descending colon polyp hot snare" are 3 bucio, irregular portions of soft tissue ranging from 0.3-0.5 cm. in greatest dimension. The specimens are submitted in toto in one cassette. B. Received in formalin, labeled "polyp descending colon cold snare" is a bucio, irregular portion of soft tissue measuring 0.2 cm. in greatest dimension. The specimen is submitted in toto in one cassette. C. Received in formalin, labeled "transverse colon polyps x2" are 3 bucio, irregular portions of soft tissue ranging from 0.2-0.3 cm. in greatest dimension. The specimens are submitted in toto in one cassette. D. Received in formalin, labeled "transverse colon polyp hot snare" are 3 bucio, irregular portions of soft tissue averaging 0.3 cm. in greatest dimension. The specimens are submitted in toto in one cassette. DL/11/16/2019 saudi11/16/2019
== END 2019-11-16 18:36 | disposition home or self-care (01) | DRG 64 ==
LOC: JER 17:17 → JERBED 19:33 → J4W 11-12 18:21
PROVIDERS: ADMIT Internal Medicine; ATTEND Internal Medicine
PROC: 30233N1 Transfusion of Nonautologous Red Blood Cells into Peripheral Vein, Percutaneous Approach (ICD-10-PCS; 2019-11-11)
PROC: 30233R1 Transfusion of Nonautologous Platelets into Peripheral Vein, Percutaneous Approach (ICD-10-PCS; 2019-11-11)
PROC: 0DB68ZX Excision of Stomach, Via Natural or Artificial Opening Endoscopic, Diagnostic (ICD-10-PCS; 2019-11-12)
PROC: 0DB78ZX Excision of Stomach, Pylorus, Via Natural or Artificial Opening Endoscopic, Diagnostic (ICD-10-PCS; 2019-11-12)
PROC: 0DB98ZX Excision of Duodenum, Via Natural or Artificial Opening Endoscopic, Diagnostic (ICD-10-PCS; 2019-11-12)
PROC: 0DBL8ZX Excision of Transverse Colon, Via Natural or Artificial Opening Endoscopic, Diagnostic (ICD-10-PCS; 2019-11-16)
PROC: 0DBL8ZX Excision of Transverse Colon, Via Natural or Artificial Opening Endoscopic, Diagnostic (ICD-10-PCS; 2019-11-16)
PROC: 0DBM8ZX Excision of Descending Colon, Via Natural or Artificial Opening Endoscopic, Diagnostic (ICD-10-PCS; principal; 2019-11-16 10:45)
DX: I63.89 Other cerebral infarction (principal); K25.4 Chronic or unspecified gastric ulcer with hemorrhage; G45.9 Transient cerebral ischemic attack, unspecified; D62 Acute posthemorrhagic anemia; I10 Essential (primary) hypertension; G51.0 Bell's palsy; F10.10 Alcohol abuse, uncomplicated; R29.810 Facial weakness; R47.02 Dysphasia; F17.210 Nicotine dependence, cigarettes, uncomplicated; I65.21 Occlusion and stenosis of right carotid artery; K57.90 Diverticulosis of intestine, part unspecified, without perforation or abscess without bleeding; K64.8 Other hemorrhoids; B96.81 Helicobacter pylori [H. pylori] as the cause of diseases classified elsewhere; K63.5 Polyp of colon
CPT/HCPCS: 36415; 36430; 36511; 70450-TC; 70551-TC; 71045-TC-FY; 71275-TC; 80048; 80053; 80061; 80307; 81003; 82272; 82550; 82553; 82607; 82728; 82746; 83540; 83550; 83721; 83735; 84100; 84466; 84484; 85025; 85027; 85610; 85730; 86850; 86900; 86901; 86922; 88305-TC; 93005; 93010; 93306-TC; 93880-TC; 93971-TC; 94760; 97116-GP; 97161-GP; 99285-25; J7030; P9016; P9034; P9038; P9058; Q9967